=== PATIENT | female | born 1955 | race Caucasian/White ===

== ENCOUNTER 2016-02-22 06:09 | Inpatient (IN) | payer MEDICARE, BC ==
[2016-02-22] MEDS ORDERED: NORMAL SALINE 1000 ML 1,000 ML IV ONE ×2 (06:33→08:32)
[2016-02-22] MEDS ORDERED: ONDANSETRON HCL INJ/PF 4 MG/2 ML SDV IV ONE (06:33)
--- NOTE | 2016-02-22 06:40 | ER Document Report ---
ED General - General Chief Complaint: Nausea/Vomiting/Diarrhea Stated Complaint: NAUSEA/VOMITING Mode of Arrival: Ambulatory Information source: Patient Notes: 60-year-old female who is had a history of nausea vomiting and complaints of difficulty urinating dehydration presents with complaints of nausea and vomiting. Patient states that she's been vomiting for 5 days denies any fevers or chills denies any abdominal pain patient does note she was able to urinate today TRAVEL OUTSIDE OF THE [place] IN LAST 30 DAYS: No - HPI Onset: Last week Onset/Duration: Persistent Quality of pain: No pain Severity: Mild Pain Level: Denies Associated symptoms: Diarrhea - Notes diarrhea has resolved, Nausea, Vomiting Exacerbated by: Denies Relieved by: Denies Similar symptoms previously: Yes Recently seen / treated by doctor: Yes - Related Data Allergies/Adverse Reactions: Sulfa (Sulfonamide Antibiotics) Allergy (Severe, Verified 10/17/15 02:42) rash morphine [Morphine] Allergy (Intermediate, Verified 10/17/15 02:42) Hives Past Medical History - Social History Smoking Status: Never Smoker Cigarette use (# per day): No Chew tobacco use (# tins/day): No Smoking Education Provided: No Family History: CVA, Hyperlipidemia, Hypertension, Malignancy, Thyroid Disfunction - Past Medical History Cardiac Medical History: Reports: Hx Hypercholesterolemia, Hx Hypertension Pulmonary Medical History: Reports: Hx Asthma - Pediatric Neurological Medical History: Reports: Hx Migraine Endocrine Medical History: Reports: Hx Hypothyroidism Renal/ Medical History: Reports: Hx Kidney Stones GI Medical History: Reports: Hx Gastroesophageal Reflux Disease, Hx Irritable Bowel Musculoskeltal Medical History: Reports Hx Arthritis - DJD of back, Reports Hx Fibromyalgia, Reports Hx Musculoskeletal Trauma Traumatic Medical History: Reports: Hx Fractures - left wrist Past Surgical History: Reports: Hx Appendectomy, Hx Cholecystectomy, Hx Genitourinary Surgery - Bladder surgery annually, Hx Tonsillectomy - Immunizations Immunizations up to date: Yes Hx Diphtheria, Pertussis, Tetanus Vaccination: Yes - 2009 Hx Pneumococcal Vaccination: 02/24/00 Review of Systems - Review of Systems Notes: REVIEW OF SYSTEMS: CONSTITUTIONAL : Denies fever, chills, or sweats. Denies recent illness. EENT: Denies eye, ear, throat, or mouth pain or symptoms. Denies nasal or sinus congestion or discharge. Denies throat, tongue, or mouth swelling or difficulty swallowing. CARDIOVASCULAR: Denies chest pain. Denies palpitations or racing or irregular heart beat. Denies ankle edema. RESPIRATORY: Denies cough, cold, or chest congestion. Denies shortness of breath, difficulty breathing, or wheezing. GASTROINTESTINAL: Admits nausea vomiting diarrhea GENITOURINARY: Denies difficulty urinating, painful urination, burning, frequency, blood in urine, or discharge. FEMALE GENITOURINARY: Denies vaginal bleeding, heavy or abnormal periods, irregular periods. Denies vaginal discharge or odor. MUSCULOSKELETAL: Denies back or neck pain or stiffness. Denies joint pain or swelling. SKIN: Denies rash, lesions or sores. HEMATOLOGIC : Denies easy bruising or bleeding. LYMPHATIC: Denies swollen, enlarged glands. NEUROLOGICAL: Denies confusion or altered mental status. Denies passing out or loss of consciousness. Denies dizziness or lightheadedness. Denies headache. Denies weakness or paralysis or loss of use of either side. Denies problems with gait or speech. Denies sensory loss, numbness, or tingling. Denies seizures. PSYCHIATRIC: Denies anxiety or stress. Denies depression, suicidal ideation, or homicidal ideation. ALL OTHER SYSTEMS REVIEWED AND NEGATIVE. Dictation was performed using [employer] voice recognition software PHYSICAL EXAMINATION: GENERAL: Well-appearing, well-nourished and in no acute distress. HEAD: Atraumatic, normocephalic. EYES: Pupils equal round and reactive to light, extraocular movements intact, conjunctiva are normal. ENT: Nares patent, oropharynx clear without exudates. Moist mucous membranes. Lips tongue appear well-hydrated NECK: Normal range of motion, supple without lymphadenopathy LUNGS: Breath sounds clear to auscultation bilaterally and equal. No wheezes rales or rhonchi. HEART: Regular rate and rhythm without murmurs ABDOMEN: Soft, nontender, nondistended abdomen. No guarding, no rebound. No masses appreciated. Female : deferred Musculoskeletal: Normal range of motion, no pitting or edema. No cyanosis. NEUROLOGICAL: Cranial nerves grossly intact. Normal speech, normal gait. Normal sensory, motor exams PSYCH: Normal mood, normal affect. SKIN: Warm, Dry, normal turgor, no rashes or lesions noted. Physical Exam - Vital signs Vitals: Temp Pulse Resp BP Pulse Ox 97.8 F 106 H 16 152/82 H 100 02/22/16 06:22 02/22/16 06:22 02/22/16 06:22 02/22/16 06:22 02/22/16 06:22 Course - Re-evaluation Re-evalutation: 02/22/16 07:30 I very low suspicion for any life-threatening issues however on the previous presentation patient was hyponatremic, at this time she is not confused , labs pending 02/22/16 08:32 Patient's sodium is 116.8 fluids have already been ordered - Vital Signs Vital signs: Temp Pulse Resp BP Pulse Ox 97.8 F 106 H 16 152/82 H 100 02/22/16 06:22 02/22/16 06:22 02/22/16 06:22 02/22/16 06:22 02/22/16 06:22 - Laboratory Result Diagrams: 02/22/16 07:56 02/22/16 07:56 Laboratory results interpreted by me: 02/22/16 07:56 Sodium 116.8 L* Potassium 3.5 L Chloride 76 L Glucose 114 H AST 12 L Alkaline Phosphatase 169 H Critical Care Note - Critical Care Note Total time excluding time spent on procedures (mins): 37 Comments: 37 minutes of critical care time spent in direct contact evaluating and reevaluating the patient, treating symptoms, reviewing labs and studies and speaking with family and consultants excluding any procedures Discharge - Discharge Clinical Impression: Acute gastroenteritis, Hyponatremia, symptomatic hyponatremia Condition: Stable Disposition: ADMITTED OBSERVATION Admitting Provider: Hospitalist Unit Admitted: Medical Floor
[2016-02-22 08:23] LABS: ALANINE AMINOTRANSFERASE 33 U/L (9-52); ALBUMIN 4.2 g/dL (3.5-5.0); ALKALINE PHOSPHATASE 169 U/L (38-126); ASPARTATE AMINO TRANSFERASE 12 U/L (14-36); BLOOD UREA NITROGEN 8 mg/dL (7-20); CALCIUM 9.2 mg/dL (8.4-10.2); CARBON DIOXIDE 25 mmol/L (22-30); CHLORIDE 76 mmol/L (98-107); CREATININE RESULT 0.57 mg/dL (0.52-1.25); GLUCOSE 114 mg/dL (75-110); POTASSIUM 3.5 mmol/L (3.6-5.0); TOTAL PROTEIN 7.5 g/dL (6.3-8.2)
[2016-02-22 08:25] LABS: ANION GAP 16 (5-19)
[2016-02-22 08:30] LABS: SODIUM 116.8 mmol/L (137-145)
[2016-02-22 08:44] LABS: HEMOGLOBIN 12.4 g/dL (12.0-15.5); HGB HCT DIFFERENCE 1.2; MEAN CORPUSCULAR HEMOGLOBIN 28.4 pg (27.0-33.4); MEAN CORPUSCULAR HGB CONC 34.5 g/dL (32.0-36.0); MEAN CORPUSCULAR VOLUME 82 fl (80-97); RED BLOOD COUNT 4.37 10^6/uL (3.72-5.28); RED CELL DISTRIBUTION WIDTH 14.2 % (11.5-14.0); WHITE BLOOD COUNT 18.2 10^3/uL (4.0-10.5)
[2016-02-22] MEDS ORDERED: ONDANSETRON HCL INJ/PF 4 MG/2 ML SDV IV PRN (08:55)
--- NOTE | 2016-02-22 08:57 | Progress Note ---
Provider Note Provider Note: [facility] Search Criteria: Last Name 'Chico' and First Name Shlomo' and = ' and Request Period = 08/26/15' to 02/22/16' - 1 out of 1 Recipients Selected. Fill Date Product, Str, Form Qty Days Pt ID Prescriber Written RX# N/R* Pharm MED+ ------ ---- --------- --- ------- ----- --------- ------ 10/28/2015 ZOLPIDEM TARTRATE 5 MG TABLET 30.00 30 [id number] 09/28/2015 [id number] R [id number] 00.0 09/28/2015 ZOLPIDEM TARTRATE 5 MG TABLET 30.00 30 [id number] 09/28/2015 [id number] N [id number] 00.0 09/08/2015 ALPRAZOLAM 1 MG TABLET 90.00 30 [id number] 06/13/2015 [id number] R [id number] 00.0 08/29/2015 ZOLPIDEM TART ER 12.5 MG TAB 30.00 30 [id number] 06/13/2015 [id number] N [id number] 00.0 *N/R N=New R=Refill +MED Daily Prescribers for prescriptions listed [id number] NINFA GARCIA MD; [facility], [address] [place] [id number] Pharmacies that dispensed prescriptions listed [id number] [facility] [place]ARCIA [place] ; EMISSIONS TESTING TECHNICIAN: [facility] #[id number], [facility] , [address] [facility] [id number], Patients that match search criteria ---------
[2016-02-22 09:09] LABS: ANISOCYTOSIS SLIGHT; BAND NEUTROPHILS % (MANUAL) 2 % (3-5); BASOPHILS % (MANUAL) 0 % (0-2); EOSINOPHILS % (MANUAL) 0 % (0-6); LYMPHOCYTES % (MANUAL) 3 % (13-45); POLYCHROMASIA SLIGHT; TOTAL CELLS COUNTED 100; TOXIC GRANULATION 2+; TOXIC VACUOLATION PRESENT
[2016-02-22 10:09] LABS: APPEARANCE,URINE CLEAR; BILIRUBIN,URINE NEGATIVE (NEGATIVE); GLUCOSE, URINE 50 mg/dL (NEGATIVE); KETONES,URINE 20 mg/dL (NEGATIVE); LEUKOCYTE ESTERASE,URINE TRACE (NEGATIVE); NITRITE,URINE NEGATIVE (NEGATIVE); PROTEIN,URINE NEGATIVE (NEGATIVE); URINE SPECIFIC GRAVITY 1.005; UROBILINOGEN,URINE NEGATIVE mg/dL (<2.0)
[2016-02-22 10:18] LABS: URINE BARBITURATES SCREEN NEGATIVE; URINE METHADONE SCREEN NEGATIVE; URINE PHENCYCLIDINE SCREEN NEGATIVE
[2016-02-22] MEDS: METOPROLOL SUCCINATE 50 MG TAB.SR.24H PO SCH ×2 (10:31→21:24)
[2016-02-22] MEDS: LEVOTHYROXINE SODIUM 0.05 MG TABLET PO SCH (10:32)
[2016-02-22] MEDS ORDERED: ENOXAPARIN SODIUM INJ 40 MG/0.4 ML DISP.SYRIN SUBCUT ONE (11:00)
[2016-02-22] MEDS ORDERED: NORMAL SALINE 1000 ML 1,000 ML IV PRN (11:52)
[2016-02-22 11:57] LABS: ANION GAP 15 (5-19); BLOOD UREA NITROGEN 7 mg/dL (7-20); CARBON DIOXIDE 24 mmol/L (22-30); CHLORIDE 88 mmol/L (98-107); CREATININE RESULT 0.56 mg/dL (0.52-1.25); GLUCOSE 105 mg/dL (75-110); POTASSIUM 3.3 mmol/L (3.6-5.0); SODIUM 126.6 mmol/L (137-145)
--- NOTE | 2016-02-22 14:55 | PDOC H&P ---
History of Present Illness Admission Date/PCP: 02/22/16 08:49 ABRAM SCHREIBER MD Patient complains of: Nausea and vomiting History of Present Illness: WILMAR GOLDEN is a 60 year old female with a past medical history of fibromyalgia is well known to the emergency department and the hospitalist service. The patient denies any confusion or change in mental status. She denies any alcohol or diuretic use. 02/23/15 12/15/15 02/22/16 14:35 06:36 07:56 Sodium 124 L 119.8 L* 116.8 L* Patient presents with a history of nausea vomiting and complaints of difficulty urinating dehydration presents with complaints of nausea and vomiting. Patient states that she's been vomiting for 3 days denies any fevers or chills denies any abdominal pain patient does note she was able to urinate today. The patient has had one day of diarrhea one symptoms started. The patient states that both of her grandchildren have been in healing feels that she has a stomach virus from them. The patient has been admitted in the past with hyponatremia. On presentation to [facility]ailesh the patient was found to have a sodium of 116 and the patient was referred to the hospitalist remission and management. MEDICATIONS: The medications listed in this document may have been auto- populated from previous contact and may not been verified or reconciled. This may not be an accurate reflection of the patient's home medication(s); however, authors are unable to edit or delete the medications listed in this document as "home medications". Past Medical History Cardiac Medical History: Reports: Hyperlipidema, Hypertension Pulmonary Medical History: Reports: Asthma Neurological Medical History: Reports: Migraine Endocrine Medical History: Reports: Hypothyroidism GI Medical History: Reports: Gastroesophageal Reflux Disease Musculoskeltal Medical History: Reports: Arthritis - DJD of back, Fibromyalgia Hematology: Reports: Anemia - on iron Past Surgical History Past Surgical History: Reports: Appendectomy, Cholecystectomy, Tonsillectomy Social History Information Source: Patient Occupation: Retired Lives with: Spouse/Significant other Smoking Status: Never Smoker Frequency of Alcohol Use: None Hx Recreational Drug Use: No Hx Prescription Drug Abuse: No - Advance Directive Resuscitation Status: Full Code Surrogate healthcare decision maker:: : Mukul Family History Family History: CVA, Hyperlipidemia, Hypertension, Malignancy, Thyroid Disfunction Parental Family History Reviewed: Yes Children Family History Reviewed: Yes Sibling(s) Family History Reviewed.: Yes Medication/Allergy Home Medications: Levothyroxine Sodium [Synthroid 0.05 mg Tablet] 50 mcg PO DAILY 07/01/15 Metoprolol Succinate [Toprol Xl] 100 mg PO BID 07/01/15 Trazodone HCl 100 mg PO QHS PRN 07/01/15 Zolpidem Tartrate [Ambien CR 6.25 mg Tablet] 12.5 mg PO QHS PRN 07/01/15 Allergies/Adverse Reactions: Sulfa (Sulfonamide Antibiotics) Allergy (Severe, Verified 02/22/16 08:40) rash morphine [Morphine] Allergy (Intermediate, Verified 02/22/16 08:40) Hives Review of Systems Constitutional: PRESENT: fatigue, weakness. ABSENT: chills, fever(s), headache( s), weight gain, weight loss Eyes: ABSENT: visual disturbances Ears: ABSENT: hearing changes Cardiovascular: ABSENT: chest pain, dyspnea on exertion, edema, orthropnea, palpitations Respiratory: ABSENT: cough, hemoptysis Gastrointestinal: PRESENT: diarrhea, nausea, vomiting. ABSENT: abdominal pain, constipation, hematemesis, hematochezia Genitourinary: ABSENT: dysuria, hematuria Musculoskeletal: ABSENT: joint swelling Integumentary: ABSENT: rash, wounds Neurological: ABSENT: abnormal gait, abnormal speech, confusion, dizziness, focal weakness, syncope Psychiatric: ABSENT: anxiety, depression, homidical ideation, suicidal ideation Endocrine: ABSENT: cold intolerance, heat intolerance, polydipsia, polyuria Hematologic/Lymphatic: ABSENT: easy bleeding, easy bruising Physical Exam Vital Signs: Temp Pulse Resp BP Pulse Ox 97.8 F 106 H 10 L 130/63 H 100 02/22/16 06:22 02/22/16 06:22 02/22/16 12:01 02/22/16 12:01 02/22/16 12:01 General appearance: PRESENT: no acute distress, cooperative, well-developed, well-nourished Head exam: PRESENT: atraumatic, normocephalic Eye exam: PRESENT: conjunctiva pink, EOMI, PERRLA. ABSENT: scleral icterus Ear exam: PRESENT: normal external ear exam Mouth exam: PRESENT: moist, tongue midline Neck exam: ABSENT: carotid bruit, JVD, lymphadenopathy, thyromegaly Respiratory exam: PRESENT: clear to auscultation moses, symmetrical, unlabored. ABSENT: rales, rhonchi, tachypnea, wheezes Cardiovascular exam: PRESENT: RRR. ABSENT: diastolic murmur, rubs, systolic murmur Pulses: PRESENT: normal dorsalis pedis pul Vascular exam: PRESENT: normal capillary refill GI/Abdominal exam: PRESENT: normal bowel sounds, soft. ABSENT: distended, guarding, mass, organolmegaly, rebound, tenderness Rectal exam: PRESENT: deferred Extremities exam: PRESENT: full ROM. ABSENT: calf tenderness, clubbing, pedal edema Neurological exam: PRESENT: alert, awake, oriented to person, oriented to place , oriented to time, oriented to situation, CN II-XII grossly intact. ABSENT: motor sensory deficit Psychiatric exam: PRESENT: appropriate affect, normal mood. ABSENT: homicidal ideation, suicidal ideation Skin exam: PRESENT: dry, intact, warm. ABSENT: cyanosis, rash Results Laboratory Results: 02/22/16 11:31 02/22/16 02/22/16 02/22/16 09:20 09:20 09:20 Sodium Cancelled Potassium Cancelled Chloride Cancelled Carbon Dioxide Cancelled Anion Gap Cancelled BUN Cancelled Creatinine Cancelled Est GFR ( Amer) Cancelled Est GFR (Non-Af Amer) Cancelled Glucose Cancelled Serum Osmolality Cancelled Calcium Cancelled Urine Color Urine Appearance Urine pH Ur Specific [place] Urine Protein Urine Glucose (UA) Urine Ketones Urine Blood Urine Nitrite Ur Leukocyte Esterase Urine WBC (Auto) Urine RBC (Auto) Urine Osmolality 202 L 02/22/16 02/22/16 02/22/16 09:20 11:31 11:31 Sodium 126.6 L Potassium 3.3 L Chloride 88 L Carbon Dioxide 24 Anion Gap 15 BUN 7 Creatinine 0.56 Est GFR ( Amer) > 60 Est GFR (Non-Af Amer) > 60 Glucose 105 Serum Osmolality 260 L Calcium 9.0 Urine Color STRAW Urine Appearance CLEAR Urine pH 8.0 Ur Specific [place] 1.005 Urine Protein NEGATIVE Urine Glucose (UA) 50 H Urine Ketones 20 H Urine Blood MODERATE H Urine Nitrite NEGATIVE Ur Leukocyte Esterase TRACE H Urine WBC (Auto) 2 Urine RBC (Auto) 10 Urine Osmolality Assessment & Plan - Diagnosis (1) Acute gastroenteritis Is this a current diagnosis for this admission?: YesPlan: Continue anti-medics. The patient has had no nausea vomiting since presentation. The patient actually ate a lunch tray. (2) Hyponatremia Is this a current diagnosis for this admission?: YesPlan: The patient has had other occurrences of this. Will attain serum and urine osmolalities and sodiums for comparison. In the meantime will gently hydrate. (3) Hypertension Is this a current diagnosis for this admission?: YesPlan: Will continue home medications. (4) Hypothyroid Qualifiers: Hypothyroidism type: unspecified Qualified Code(s): E03.9 - Hypothyroidism, unspecified Is this a current diagnosis for this admission?: YesPlan: Will continue home medications. (5) Interstitial cystitis Is this a current diagnosis for this admission?: No (6) DVT prophylaxis Is this a current diagnosis for this admission?: YesPlan: Will add Lovenox - Time Time Spent with patient: on this admission including assessment, plan, physical examination, review of records and patient education is 50 minutes. Time Spent: 50 to 70 Minutes Medications reviewed and adjusted accordingly: Yes Anticipated discharge: Home Within: within 24 hours Disposition: The patient is a full code. Pending patient's symptomatology and diagnostic findings will reevaluate in the a.m. - Inpatient Certification Based on my medical assessment, after consideration of the patient's comorbidities, presenting symptoms, or acuity I expect that the services needed warrant INPATIENT care.: Yes Medical Necessity: Need Close Monitoring Due to Risk of Patient Decompensation, Need For IV Fluids, Need For Continuous Telemetry Monitoring Post Hospital Care: D/C or Transfer Summary
[2016-02-22 20:54] LABS: ANION GAP 11 (5-19); BLOOD UREA NITROGEN 12 mg/dL (7-20); CALCIUM 8.9 mg/dL (8.4-10.2); CARBON DIOXIDE 21 mmol/L (22-30); CHLORIDE 100 mmol/L (98-107); CREATININE RESULT 0.72 mg/dL (0.52-1.25); GLUCOSE 95 mg/dL (75-110); POTASSIUM 3.6 mmol/L (3.6-5.0); SODIUM 132.4 mmol/L (137-145)
[2016-02-22] MEDS ORDERED: DEXTROSE 5%-WATER 1000 ML 1,000 ML IV PRN ×3 (21:12→21:34)
[2016-02-22] MEDS ORDERED: DESMOPRESSIN ACETATE INJ 4 MCG/1 ML AMPULE SUBCUT ONE (22:00)
[2016-02-22] MEDS: TRAZODONE HCL 50 MG TABLET PO PRN (23:29)
[2016-02-23 00:57] LABS: ANION GAP 10 (5-19); BLOOD UREA NITROGEN 10 mg/dL (7-20); CALCIUM 8.6 mg/dL (8.4-10.2); CARBON DIOXIDE 24 mmol/L (22-30); CHLORIDE 98 mmol/L (98-107); CREATININE RESULT 0.69 mg/dL (0.52-1.25); GLUCOSE 100 mg/dL (75-110)
[2016-02-23] MEDS ORDERED: DEXTROSE 5%-WATER 1000 ML 1,000 ML IV PRN (01:12)
[2016-02-23] MEDS ORDERED: DESMOPRESSIN ACETATE INJ 4 MCG/1 ML AMPULE SUBCUT ONE (01:45)
[2016-02-23] MEDS ORDERED: DESMOPRESSIN ACETATE INJ 4 MCG/1 ML AMPULE ONE (02:10)
[2016-02-23 04:03] LABS: HEMATOCRIT 30.2 % (36.0-47.0); HEMOGLOBIN 10.6 g/dL (12.0-15.5); HGB HCT DIFFERENCE 1.6; MEAN CORPUSCULAR HGB CONC 34.9 g/dL (32.0-36.0); MEAN CORPUSCULAR VOLUME 83 fl (80-97); RED BLOOD COUNT 3.64 10^6/uL (3.72-5.28); RED CELL DISTRIBUTION WIDTH 14.6 % (11.5-14.0); WHITE BLOOD COUNT 8.4 10^3/uL (4.0-10.5)
[2016-02-23 04:18] LABS: ANION GAP 9 (5-19); BLOOD UREA NITROGEN 9 mg/dL (7-20); CALCIUM 8.4 mg/dL (8.4-10.2); CARBON DIOXIDE 22 mmol/L (22-30); CHLORIDE 97 mmol/L (98-107); CREATININE RESULT 0.67 mg/dL (0.52-1.25); GLUCOSE 115 mg/dL (75-110); MAGNESIUM 1.7 mg/dL (1.6-2.3); SODIUM 128.1 mmol/L (137-145)
[2016-02-23 04:23] LABS: POTASSIUM 2.9 mmol/L (3.6-5.0)
[2016-02-23] MEDS ORDERED: POTASSIUM CHLORIDE 20 MEQ/15 ML UDCUP PO ONE ×3 (04:38→09:00)
[2016-02-23] MEDS ORDERED: POTASSIUM CHLORIDE 20 MEQ/15 ML UDCUP ONE (05:18)
[2016-02-23] MEDS ORDERED: DESMOPRESSIN ACETATE INJ 4 MCG/1 ML AMPULE SUBCUT SCH (06:00)
[2016-02-23] MEDS: ACETAMINOPHEN 325 MG TABLET PO PRN (06:38)
[2016-02-23 09:04] LABS: ANION GAP 9 (5-19); BLOOD UREA NITROGEN 8 mg/dL (7-20); CALCIUM 8.4 mg/dL (8.4-10.2); CARBON DIOXIDE 21 mmol/L (22-30); CHLORIDE 96 mmol/L (98-107); CREATININE RESULT 0.66 mg/dL (0.52-1.25); GLUCOSE 127 mg/dL (75-110); POTASSIUM 3.4 mmol/L (3.6-5.0); SODIUM 126.2 mmol/L (137-145)
[2016-02-23] MEDS: METOPROLOL SUCCINATE 50 MG TAB.SR.24H PO SCH ×2 (09:34→21:16)
[2016-02-23] MEDS: ENOXAPARIN SODIUM INJ 40 MG/0.4 ML DISP.SYRIN SUBCUT SCH (09:38)
[2016-02-23] MEDS: LEVOTHYROXINE SODIUM 0.05 MG TABLET PO SCH (09:39)
[2016-02-23] MEDS ORDERED: POTASSI CL 20 MEQ/NS 1L 1,000 ML IV ONE (10:00)
[2016-02-23] MEDS ORDERED: LANSOPRAZOLE 30 MG TAB.RAP.DR PO ONE (14:06)
--- NOTE | 2016-02-23 14:31 | PDOC PROGRESS REPORT ---
Subjective Progress Note for:: 02/23/16 Subjective:: The patient was seen earlier today on rounds. Patient has no evidence of neurological deficit. The patient states that her symptoms are much improved in comparison to yesterday. The patient states that she was able to tolerate her dinner and is ready for breakfast this morning. The patient denies any vomiting, diarrhea, shortness of breath, dizziness, chest pain, heart palpitations, fevers, or chills overnight. The patient has remained afebrile. Blood pressures have been in a good range. When prompted the patient voices no other concerns at this time. Review of systems: The rest of the review of systems is negative. Physical Exam Vital Signs: Temp Pulse Resp BP Pulse Ox 98.3 F 87 20 115/53 L 98 02/23/16 13:26 02/23/16 14:00 02/23/16 13:26 02/23/16 13:26 02/23/16 13:26 Intake & Output 02/21/16 02/22/16 02/23/16 23:59 23:59 23:59 Intake Total 822 Balance 822 Weight 51.7 kg General appearance: PRESENT: no acute distress, cooperative, well-developed, well-nourished Head exam: PRESENT: atraumatic, normocephalic Eye exam: PRESENT: conjunctiva pink, EOMI, PERRLA. ABSENT: scleral icterus Ear exam: PRESENT: normal external ear exam Mouth exam: PRESENT: moist, tongue midline Neck exam: ABSENT: carotid bruit, JVD, lymphadenopathy, thyromegaly Respiratory exam: PRESENT: clear to auscultation moses, symmetrical, unlabored. ABSENT: rales, rhonchi, tachypnea, wheezes Cardiovascular exam: PRESENT: RRR. ABSENT: diastolic murmur, rubs, systolic murmur Pulses: PRESENT: normal dorsalis pedis pul Vascular exam: PRESENT: normal capillary refill GI/Abdominal exam: PRESENT: normal bowel sounds, soft. ABSENT: distended, guarding, mass, organolmegaly, rebound, tenderness Rectal exam: PRESENT: deferred Extremities exam: PRESENT: full ROM. ABSENT: calf tenderness, clubbing, pedal edema Neurological exam: PRESENT: alert, awake, oriented to person, oriented to place , oriented to time, oriented to situation, CN II-XII grossly intact. ABSENT: motor sensory deficit Psychiatric exam: PRESENT: appropriate affect, normal mood. ABSENT: homicidal ideation, suicidal ideation Skin exam: PRESENT: dry, intact, warm. ABSENT: cyanosis, rash Results Laboratory Results: Labs- All tests 24 hr 02/22/16 02/22/16 02/22/16 20:12 20:12 20:12 WBC RBC Hgb Hct MCV MCH MCHC RDW Plt Count Sodium 132.4 L Potassium 3.6 Chloride 100 Carbon Dioxide 21 L Anion Gap 11 BUN 12 Creatinine 0.72 Est GFR ( Amer) > 60 Est GFR (Non-Af Amer) > 60 Glucose 95 Calcium 8.9 Magnesium 2.1 Lipase TSH 4.71 H Free T4 02/23/16 02/23/16 02/23/16 00:30 03:52 03:52 WBC 8.4 RBC 3.64 L Hgb 10.6 L Hct 30.2 L MCV 83 MCH 29.0 MCHC 34.9 RDW 14.6 H Plt Count 297 Sodium 132.0 L 128.1 L Potassium 4.0 2.9 L* D Chloride 98 97 L Carbon Dioxide 24 22 Anion Gap 10 9 BUN 10 9 Creatinine 0.69 0.67 Est GFR ( Amer) > 60 > 60 Est GFR (Non-Af Amer) > 60 > 60 Glucose 100 115 H Calcium 8.6 8.4 Magnesium 1.7 Lipase TSH Free T4 02/23/16 02/23/16 02/23/16 07:58 07:58 07:58 WBC RBC Hgb Hct MCV MCH MCHC RDW Plt Count Sodium 126.2 L Potassium 3.4 L Chloride 96 L Carbon Dioxide 21 L Anion Gap 9 BUN 8 Creatinine 0.66 Est GFR ( Amer) > 60 Est GFR (Non-Af Amer) > 60 Glucose 127 H Calcium 8.4 Magnesium Lipase 68.0 TSH Free T4 1.46 Assessment & Plan - Diagnosis (1) Acute gastroenteritis Is this a current diagnosis for this admission?: YesPlan: Continue anti-medics. The patient has had no nausea vomiting since presentation. The patient has been advanced to a regular diet. Appears to been resolving. (2) Hyponatremia Is this a current diagnosis for this admission?: YesPlan: The patient has had other occurrences of this. The patient denies any alcohol use. It appears to be a hypovolemic hyponatremia. Will continue to replace fluids. Now that the patient is taking by mouth will drastically decreased fluids and repeat labs this afternoon. (3) Hypertension Is this a current diagnosis for this admission?: YesPlan: Will continue home medications. (4) Hypothyroid Qualifiers: Hypothyroidism type: unspecified Qualified Code(s): E03.9 - Hypothyroidism, unspecified Is this a current diagnosis for this admission?: YesPlan: Will continue home medications. Teeth 4 is unremarkable (5) Interstitial cystitis Is this a current diagnosis for this admission?: No (6) Hypokalemia Is this a current diagnosis for this admission?: YesPlan: Will replete this (7) DVT prophylaxis Is this a current diagnosis for this admission?: YesPlan: Continue Lovenox - Time Time Spent with patient: on this followup including assessment, plan, physical examination, and patient education is 25 minutes. Time Spent with patient: 25-34 minutes Anticipated discharge: Home Within: within 24 hours Disposition: The patient is a full code. Pending patient's symptomatology and diagnostic findings will reevaluate in the a.m.
[2016-02-23 15:42] LABS: ANION GAP 6 (5-19); BLOOD UREA NITROGEN 7 mg/dL (7-20); CALCIUM 8.4 mg/dL (8.4-10.2); CARBON DIOXIDE 24 mmol/L (22-30); CHLORIDE 98 mmol/L (98-107); CREATININE RESULT 0.63 mg/dL (0.52-1.25); GLUCOSE 102 mg/dL (75-110); SODIUM 128.1 mmol/L (137-145)
[2016-02-23 15:50] LABS: POTASSIUM 4.5 mmol/L (3.6-5.0)
[2016-02-23] MEDS: LANSOPRAZOLE 30 MG TAB.RAP.DR PO SCH (16:52)
[2016-02-23] MEDS: TRAZODONE HCL 50 MG TABLET PO PRN (21:16)
[2016-02-23] MEDS: ZOLPIDEM TARTRATE 5 MG TABLET PO PRN (21:16)
[2016-02-24] MEDS: LANSOPRAZOLE 30 MG TAB.RAP.DR PO SCH ×2 (05:46→16:36)
[2016-02-24 07:53] LABS: ANION GAP 9 (5-19); BLOOD UREA NITROGEN 5 mg/dL (7-20); CALCIUM 8.5 mg/dL (8.4-10.2); CARBON DIOXIDE 22 mmol/L (22-30); CHLORIDE 94 mmol/L (98-107); CREATININE RESULT 0.54 mg/dL (0.52-1.25); GLUCOSE 94 mg/dL (75-110); MAGNESIUM 1.8 mg/dL (1.6-2.3); SODIUM 124.9 mmol/L (137-145)
[2016-02-24] MEDS: ENOXAPARIN SODIUM INJ 40 MG/0.4 ML DISP.SYRIN SUBCUT SCH (08:14)
[2016-02-24] MEDS ORDERED: NORMAL SALINE 1000 ML 1,000 ML IV PRN (08:22)
[2016-02-24] MEDS ORDERED: BENZOCAINE/MENTHOL SORE THROAT LOZENGE BUCCAL PRN (08:23)
[2016-02-24] MEDS ORDERED: MAG HYDROX/AL HYDROX/SIMETH SUSP 30 ML UDCUP PO PRN (08:24)
[2016-02-24] MEDS ORDERED: ONDANSETRON 4 MG TAB.RAPDIS PO PRN (08:25)
[2016-02-24] MEDS: METOPROLOL SUCCINATE 50 MG TAB.SR.24H PO SCH ×2 (10:15→21:19)
[2016-02-24] MEDS: LEVOTHYROXINE SODIUM 0.05 MG TABLET PO SCH (10:15)
[2016-02-24] MEDS: ACETAMINOPHEN 325 MG TABLET PO PRN ×2 (11:42→21:18)
--- NOTE | 2016-02-24 15:09 | PDOC PROGRESS REPORT ---
Subjective Progress Note for:: 02/24/16 Subjective:: The patient was seen earlier today on rounds. Patient has no evidence of neurological deficit. The patient states that her symptoms are much improved in comparison to yesterday. Patient's been able to tolerate all of her meals. Patient does complain of indigestion stating that she ate "spicy pasta yesterday " The patient denies any vomiting, diarrhea, shortness of breath, dizziness, chest pain, heart palpitations, fevers, or chills overnight. The patient has remained afebrile. Blood pressures have been in a good range. When prompted the patient voices no other concerns at this time. Review of systems: The rest of the review of systems is negative. Physical Exam Vital Signs: Temp Pulse Resp BP Pulse Ox 98.1 F 85 16 143/73 H 100 02/24/16 08:42 02/24/16 14:00 02/24/16 08:42 02/24/16 08:42 02/24/16 08:42 Intake & Output 02/22/16 02/23/16 02/24/16 23:59 23:59 23:59 Intake Total 2249 700 Balance 2249 700 Weight 51.7 kg General appearance: PRESENT: no acute distress, cooperative, well-developed, well-nourished Head exam: PRESENT: atraumatic, normocephalic Eye exam: PRESENT: conjunctiva pink, EOMI, PERRLA. ABSENT: scleral icterus Ear exam: PRESENT: normal external ear exam Mouth exam: PRESENT: moist, tongue midline Neck exam: ABSENT: carotid bruit, JVD, lymphadenopathy, thyromegaly Respiratory exam: PRESENT: clear to auscultation moses, symmetrical, unlabored. ABSENT: rales, rhonchi, tachypnea, wheezes Cardiovascular exam: PRESENT: RRR. ABSENT: diastolic murmur, rubs, systolic murmur Pulses: PRESENT: normal dorsalis pedis pul Vascular exam: PRESENT: normal capillary refill GI/Abdominal exam: PRESENT: normal bowel sounds, soft. ABSENT: distended, guarding, mass, organolmegaly, rebound, tenderness Rectal exam: PRESENT: deferred Extremities exam: PRESENT: full ROM. ABSENT: calf tenderness, clubbing, pedal edema Neurological exam: PRESENT: alert, awake, oriented to person, oriented to place , oriented to time, oriented to situation, CN II-XII grossly intact. ABSENT: motor sensory deficit Psychiatric exam: PRESENT: appropriate affect, normal mood. ABSENT: homicidal ideation, suicidal ideation Skin exam: PRESENT: dry, intact, warm. ABSENT: cyanosis, rash Results Laboratory Results: 02/23/16 03:52 02/24/16 06:12 02/23/16 02/24/16 14:40 06:12 Sodium 128.1 L 124.9 L Potassium 4.5 D 4.0 Chloride 98 94 L Carbon Dioxide 24 22 Anion Gap 6 9 BUN 7 5 L Creatinine 0.63 0.54 Est GFR ( Amer) > 60 > 60 Est GFR (Non-Af Amer) > 60 > 60 Glucose 102 94 Calcium 8.4 8.5 Magnesium 1.8 Assessment & Plan - Diagnosis (1) Acute gastroenteritis Is this a current diagnosis for this admission?: YesPlan: Continue anti-medics. The patient has had no nausea vomiting since presentation. The patient has been advanced to a regular diet. Appears to been resolving. (2) Hyponatremia Is this a current diagnosis for this admission?: YesPlan: The patient has had other occurrences of this. The patient denies any alcohol use. It appears to be a hypovolemic hyponatremia. Will continue to replace fluids. (3) Hypertension Is this a current diagnosis for this admission?: YesPlan: Will continue home medications. (4) Hypothyroid Qualifiers: Hypothyroidism type: unspecified Qualified Code(s): E03.9 - Hypothyroidism, unspecified Is this a current diagnosis for this admission?: YesPlan: Will continue home medications. T4 is unremarkable (5) Interstitial cystitis Is this a current diagnosis for this admission?: No (6) Hypokalemia Is this a current diagnosis for this admission?: YesPlan: Will replete this (7) DVT prophylaxis Is this a current diagnosis for this admission?: YesPlan: Continue Lovenox - Time Time Spent with patient: on this followup including assessment, plan, physical examination, and patient education is 25 minutes. Time Spent with patient: 25-34 minutes Medications reviewed and adjusted accordingly: Yes Anticipated discharge: Home Within: within 24 hours Disposition: The patient is a full code. Pending patient's symptomatology and diagnostic findings will reevaluate in the a.m.
[2016-02-24] MEDS: TRAZODONE HCL 50 MG TABLET PO PRN (21:19)
[2016-02-24] MEDS: ZOLPIDEM TARTRATE 5 MG TABLET PO PRN (21:19)
[2016-02-25] MEDS: LANSOPRAZOLE 30 MG TAB.RAP.DR PO SCH (05:37)
[2016-02-25 07:16] LABS: ANION GAP 11 (5-19); BLOOD UREA NITROGEN 7 mg/dL (7-20); CALCIUM 8.8 mg/dL (8.4-10.2); CARBON DIOXIDE 23 mmol/L (22-30); CHLORIDE 103 mmol/L (98-107); CREATININE RESULT 0.59 mg/dL (0.52-1.25); GLUCOSE 89 mg/dL (75-110); POTASSIUM 4.1 mmol/L (3.6-5.0); SODIUM 137.3 mmol/L (137-145)
[2016-02-25] MEDS ORDERED: BISACODYL 10 MG SUPP.RECT PR ONE (08:11)
--- NOTE | 2016-02-25 08:16 | PDOC DISCHARGE SUMMARY ---
General - Admit/Disc Date/PCP Admission Date/Primary Care Provider: 02/22/16 08:49 ABRAM SCHREIBER MD Discharge Date: 02/25/16 - Discharge Diagnosis (1) Acute gastroenteritis Is this a current diagnosis for this admission?: Yes (2) Hyponatremia Is this a current diagnosis for this admission?: Yes (3) Hypertension Is this a current diagnosis for this admission?: Yes (4) Hypothyroid Is this a current diagnosis for this admission?: Yes (5) Interstitial cystitis Is this a current diagnosis for this admission?: No (6) Hypokalemia Is this a current diagnosis for this admission?: Yes (7) DVT prophylaxis Is this a current diagnosis for this admission?: Yes - Additional Information Resuscitation Status: Full Code Discharge Diet: As Tolerated, Regular Discharge Activity: Activity As Tolerated Home Medications: Levothyroxine Sodium [Synthroid 0.05 mg Tablet] 50 mcg PO DAILY 07/01/15 Metoprolol Succinate [Toprol Xl] 100 mg PO BID 07/01/15 Trazodone HCl 100 mg PO QHS PRN 07/01/15 Zolpidem Tartrate [Ambien CR 6.25 mg Tablet] 12.5 mg PO QHS PRN 07/01/15 History of Present Illness Patient complains of: Vomiting History of Present Illness: WILMAR GOLDEN is a 60 year old female with a past medical history of fibromyalgia is well known to the emergency department and the hospitalist service. The patient denies any confusion or change in mental status. She denies any alcohol or diuretic use. 02/23/15 12/15/15 02/22/16 14:35 06:36 07:56 Sodium 124 L 119.8 L* 116.8 L* Patient presented with a history of nausea vomiting and complaints of difficulty urinating dehydration presents with complaints of nausea and vomiting. Patient states that she's been vomiting for 3 days denies any fevers or chills denies any abdominal pain patient does note she was able to urinate today. The patient has had one day of diarrhea one symptoms started. The patient states that both of her grandchildren have been in healing feels that she has a stomach virus from them. The patient has been admitted in the past with hyponatremia. On presentation to the ED the patient was found to have a sodium of 116 and the patient was referred to the hospitalist remission and management. Hospital Course Hospital Course: The patient was admitted to continuous telemetry unit. The patient was treated for hyponatremia by having cerium and urine osmolalities. The patient's findings were consistent with hypovolemic hyponatremia. The patient had no further replication of symptoms after admission and the patient's diet was slowly advanced. The patient had no further episodes of vomiting nor diarrhea while in the hospital. The patient's sodium did improve and has returned to normal. She has been able to tolerate her diet. The patient had no neurological deficit. Patient did complain of a sore throat which was felt to be due to her vomiting is the patient's throat swabs were found to be unremarkable. The patient also was noted to have heartburn symptoms which are felt to be due to esophageal irritation from vomiting. These were well controlled with Mylanta. At this time the patient voices no concerns other than needing to have a bowel movement. The patient has agreed to suppository and is ready for discharge. It is completely asymptomatic at the time of discharge. Physical Exam Vital Signs: Temp Pulse Resp BP Pulse Ox 97.5 F 81 16 131/63 H 98 02/25/16 03:49 02/25/16 03:49 02/24/16 23:09 02/25/16 03:49 02/25/16 03:49 Intake & Output 02/23/16 02/24/16 02/25/16 23:59 23:59 23:59 Intake Total 2249 2350 0 Balance 2249 2350 0 Weight 56.3 kg General appearance: PRESENT: no acute distress, cooperative, well-developed, well-nourished Head exam: PRESENT: atraumatic, normocephalic Eye exam: PRESENT: conjunctiva pink, EOMI, PERRLA. ABSENT: scleral icterus Ear exam: PRESENT: normal external ear exam Mouth exam: PRESENT: moist, tongue midline Neck exam: ABSENT: carotid bruit, JVD, lymphadenopathy, thyromegaly Respiratory exam: PRESENT: clear to auscultation moses, symmetrical, unlabored. ABSENT: rales, rhonchi, tachypnea, wheezes Cardiovascular exam: PRESENT: RRR. ABSENT: diastolic murmur, rubs, systolic murmur Pulses: PRESENT: normal dorsalis pedis pul Vascular exam: PRESENT: normal capillary refill GI/Abdominal exam: PRESENT: normal bowel sounds, soft. ABSENT: distended, guarding, mass, organolmegaly, rebound, tenderness Rectal exam: PRESENT: deferred Extremities exam: PRESENT: full ROM. ABSENT: calf tenderness, clubbing, pedal edema Neurological exam: PRESENT: alert, awake, oriented to person, oriented to place , oriented to time, oriented to situation, CN II-XII grossly intact. ABSENT: motor sensory deficit Psychiatric exam: PRESENT: appropriate affect, normal mood. ABSENT: homicidal ideation, suicidal ideation Skin exam: PRESENT: dry, intact, warm. ABSENT: cyanosis, rash Results Laboratory Results: 02/23/16 03:52 02/25/16 05:50 02/25/16 05:50 Sodium 137.3 Potassium 4.1 Chloride 103 Carbon Dioxide 23 Anion Gap 11 BUN 7 Creatinine 0.59 Est GFR ( Amer) > 60 Est GFR (Non-Af Amer) > 60 Glucose 89 Calcium 8.8 Magnesium 2.0 Qualifiers [place] BEING DISCHARGED WITH ANY OF THE FOLLOWING DIAGNOSIS?: No Plan Discharge Plan: The patient is to followup with their primary care provider, Dr. Schreiber, within one week for hospital followup regarding acute gastroenteritis. Time Spent: Less than 30 Minutes
[2016-02-25] MEDS: ENOXAPARIN SODIUM INJ 40 MG/0.4 ML DISP.SYRIN SUBCUT SCH (08:22)
[2016-02-25 09:17] VITALS: BP 115/79
[2016-02-25] MEDS: METOPROLOL SUCCINATE 50 MG TAB.SR.24H PO SCH (09:21)
[2016-02-25] MEDS: LEVOTHYROXINE SODIUM 0.05 MG TABLET PO SCH (09:21)
== END 2016-02-25 10:14 | disposition home or self-care (01) | DRG 392 ==
LOC: ER 06:09 → EH 08:43 → OBSVTOIN 08:49 → 5 20:31
PROVIDERS: ADMIT Family Medicine; ATTEND Family Medicine
DX: K52.9 Noninfective gastroenteritis and colitis, unspecified (principal); E87.1 Hypo-osmolality and hyponatremia; K21.9 Gastro-esophageal reflux disease without esophagitis; N30.10 Interstitial cystitis (chronic) without hematuria; I10 Essential (primary) hypertension; E78.5 Hyperlipidemia, unspecified; E78.00 Pure hypercholesterolemia, unspecified; E03.9 Hypothyroidism, unspecified; M79.7 Fibromyalgia; Z88.2 Allergy status to sulfonamides; Z88.5 Allergy status to narcotic agent
CPT/HCPCS: 36415; 80048; 80053; 80301; 81001; 83690; 83735; 83930; 83935; 84300; 84439; 84443; 85025; 85027; 87070; 87880; 96361; 96372; 96374; 99291; G0479; J1650; J2405; J2597; J3480; J3490; J7030; J7060; S0119

== ENCOUNTER 2016-11-04 18:31 | Emergency (ER) | payer MEDICARE, BC ==
--- NOTE | 2016-11-04 19:17 | ER Document Report ---
ED Medical Screen (RME) - General Chief Complaint: Rash Stated Complaint: RASH, UNABLE TO URINATE Time Seen by Provider: 11/04/16 19:15 Notes: Patient presents with the sudden onset of a rash to the lower extremities. It started today. She denies any trauma. She denies any previous history of similar symptoms. No new medications. She states the rash is not painful but it does feel very hot. Patient denies any chest pain or shortness of breath. She has not had any weakness. Exam shows a nonblanching purpuric/vasculitic rash on the lower extremities. TRAVEL OUTSIDE OF THE [place] IN LAST 30 DAYS: No - Related Data Allergies/Adverse Reactions: Sulfa (Sulfonamide Antibiotics) Allergy (Severe, Verified 11/04/16 18:42) rash morphine [Morphine] Allergy (Intermediate, Verified 11/04/16 18:42) Hives Past Medical History - Past Medical History Cardiac Medical History: Reports: Hx Hypercholesterolemia, Hx Hypertension Pulmonary Medical History: Reports: Hx Asthma Neurological Medical History: Reports: Hx Migraine Endocrine Medical History: Reports: Hx Hypothyroidism Renal/ Medical History: Reports: Hx Kidney Stones. 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, Reports Hx Fibromyalgia, Reports Hx Musculoskeletal Trauma Traumatic Medical History: Reports: Hx Fractures - left wrist Past Surgical History: Reports: Hx Appendectomy, Hx Cholecystectomy, Hx Genitourinary Surgery - Bladder surgery annually, Hx Tonsillectomy - Immunizations Immunizations up to date: Yes Hx Diphtheria, Pertussis, Tetanus Vaccination: Yes - 2009 Physical Exam - Vital signs Vitals: Temp Pulse Resp BP Pulse Ox 98.5 F 111 H 18 174/85 H 100 11/04/16 18:39 11/04/16 18:39 11/04/16 18:39 11/04/16 18:39 11/04/16 18:39 Course - Vital Signs Vital signs: Temp Pulse Resp BP Pulse Ox 98.5 F 111 H 18 174/85 H 100 11/04/16 18:39 11/04/16 18:39 11/04/16 18:39 11/04/16 18:39 11/04/16 18:39
--- NOTE | 2016-11-04 20:17 | ER Document Report ---
ED General - General Chief Complaint: Rash Stated Complaint: RASH, UNABLE TO URINATE Time Seen by Provider: 11/04/16 19:15 Mode of Arrival: Ambulatory Information source: Patient Notes: Patient presents complaining of rash to the anterior aspect of bilateral lower extremities that started today. Patient denies any new foods, medications or detergents. Patient states that she took a Benadryl to treat her symptoms but is concerned that she might be dehydrated and that the Benadryl just aggravated her sense of dehydration. Patient reports some decreased urine output. Patient does report she has a previous history of interstitial cystitis. Patient denies any dysuria. Patient states she has some nausea and vomiting 1 episode yesterday but none today. Patient denies any diarrhea. Patient denies any fever. Patient states that she has had chest pain off and on for the past year that she attributes to anxiety. Patient reports she has had chest pain symptoms for the past 4 days. Patient denies any dyspnea recent travel, bedrest or immobilization. Patient states that she suspects that her chest pain symptoms tonight are due to anxiety. TRAVEL OUTSIDE OF THE [place] IN LAST 30 DAYS: No - HPI Onset: This morning - skin rash Onset/Duration: Gradual Pain Level: 3 Associated symptoms: Chest pain, Nausea, Other - skin rash. denies: Body/ muscle aches, Nonproductive cough, Productive cough, Diarrhea, Fever, Vomiting, Shortness of breath Exacerbated by: Denies Relieved by: Denies Similar symptoms previously: Yes - anxiety/cp Recently seen / treated by doctor: No - Related Data Allergies/Adverse Reactions: Sulfa (Sulfonamide Antibiotics) Allergy (Severe, Verified 11/04/16 18:42) rash morphine [Morphine] Allergy (Intermediate, Verified 11/04/16 18:42) Hives Past Medical History - General Information source: Patient - Social History Smoking Status: Never Smoker Frequency of alcohol use: None Drug Abuse: None Occupation: none Lives with: Spouse/Significant other Family History: CVA, Hyperlipidemia, Hypertension, Malignancy, Thyroid Disfunction - Past Medical History Cardiac Medical History: Reports: Hx Hypercholesterolemia, Hx Hypertension Pulmonary Medical History: Reports: Hx Asthma Neurological Medical History: Reports: Hx Migraine Endocrine Medical History: Reports: Hx Hypothyroidism Renal/ Medical History: Reports: Hx Kidney Stones. 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 denies: Fever, Recent illness EENT: No symptoms reported Cardiovascular: Chest pain. denies: Palpitations, Heart racing, Syncope Respiratory: No symptoms reported. denies: Cough, Short of breath Gastrointestinal: No symptoms reported. denies: Abdominal pain, Vomiting Genitourinary: Other - decreased urine output (pt suspects dehydration). denies : Dysuria Female Genitourinary: No symptoms reported Musculoskeletal: No symptoms reported. denies: Back pain Skin: Change in color Hematologic/Lymphatic: No symptoms reported Neurological/Psychological: Anxiety. denies: Headaches Physical Exam - Vital signs Vitals: Temp Pulse Resp BP Pulse Ox 98.5 F 111 H 18 174/85 H 100 11/04/16 18:39 11/04/16 18:39 11/04/16 18:39 11/04/16 18:39 11/04/16 18:39 - General General appearance: Appears well, Alert In distress: None - HEENT Head: Normocephalic, Atraumatic Eyes: Normal Nasal: Normal Mouth/Lips: Normal Mucous membranes: Normal Neck: Normal, Supple. No: Lymphadenopathy - Respiratory Respiratory status: No respiratory distress Chest status: Nontender Breath sounds: Normal. No: Rales, Rhonchi, Stridor, Wheezing Chest palpation: Normal - Cardiovascular Rhythm: Regular Heart sounds: S1 appreciated, S2 appreciated Murmur: No - Abdominal Inspection: Normal Bowel sounds: Normal Tenderness: Nontender - Back Back: Normal, Nontender. No: CVA tenderness - Extremities General upper extremity: Normal inspection, Normal ROM General lower extremity: Normal ROM, Other - Rash to bilateral thighs and anterior aspect of bilateral lower legs - Neurological Neuro grossly intact: Yes Cognition: Normal [place] Coma Scale Eye Opening: Spontaneous [place] Coma Scale Verbal: Oriented [place]sy Coma Scale Motor: Obeys Commands [place] Coma Scale Total: 15 - Psychological Associated symptoms: Normal affect, Normal mood - Skin Skin Temperature: Warm Skin Moisture: Dry Skin Color: Erythema - Erythematous rash to anterior aspect of bilateral thighs and lower extremities, area warm to touch and nonblanching. Skin irregularity: Rash - Erythematous rash concerning for vasculitis. negative : Abscess Location of irregularity: Extremities Character of irregularity: Erythematous Irregularity with: Warmth Course - Re-evaluation Re-evalutation: 11/04/16 21:34 Patient told RN that she was having chest pressure. Provider to room. Patient states that she has had chest pressure off and on over the past year but states she has had persistent symptoms over the past 4 days. Patient states she attributed to anxiety. Patient states that it is not a pain but describes it as a pressure. Patient denies any cough or cold symptoms. 11/04/16 23:[address] Alvarado regarding patient presentation as well as diagnostic test results. Agrees with plan for discharge pending normal troponin test. Does not recommend any medications to treat her vasculitis type skin rash. 11/05/16 00:31 Patient states that she is feeling much better after the IV fluids, vital signs stable. 11/05/16 00:45 Patient with a history of hyponatremia in the past. Patient has previously been admitted for hyponatremia due to hypovolemia in the past. Patient complained of dehydration and was rehydrated here in the emergency department. Patient clinically is feeling better. The patient has atypical chest pain as the patient's chest pain is not suggestive of pulmonary embolus, cardiac ischemia, aortic dissection, or other serious etiology. Given the extremely low risk of these diagnoses for the test in evaluation for these possibilities does not appear to be indicated at this time. Patient has been instructed to return if the symptoms worsen or change in any way. Patient advised that she will need to follow-up with her primary doctor tomorrow for recheck and will likely need follow-up with dermatology for further evaluation of her rash. - Vital Signs Vital signs: Temp Pulse Resp BP Pulse Ox 97.5 F 98 18 126/60 H 98 11/04/16 21:30 11/05/16 01:17 11/05/16 01:17 11/05/16 01:17 11/05/16 01:17 - Laboratory Result Diagrams: 11/04/16 20:20 11/04/16 20:20 Laboratory results interpreted by me: 11/04/16 11/04/16 11/04/16 20:20 20:20 21:20 WBC 11.9 H Hgb 11.5 L Hct 33.6 L RDW 14.2 H Seg Neutrophils % 83.3 H Lymphocytes % 10.9 L Absolute Neutrophils 9.9 H Sodium 126.0 L Chloride 91 L Carbon Dioxide 18 L BUN 6 L Direct Bilirubin 0.5 H AST 13 L Alkaline Phosphatase 154 H Urine Ketones 20 H Urine Blood MODERATE H Ur Leukocyte Esterase TRACE H Labs- Entire Visit 11/04/16 11/04/16 11/04/16 20:20 20:20 20:50 WBC 11.9 H RBC 3.92 Hgb 11.5 L Hct 33.6 L MCV 86 MCH 29.3 MCHC 34.2 RDW 14.2 H Plt Count 297 Seg Neutrophils % 83.3 H Lymphocytes % 10.9 L Monocytes % 5.5 Eosinophils % 0.1 Basophils % 0.2 Absolute Neutrophils 9.9 H Absolute Lymphocytes 1.3 Absolute Monocytes 0.7 Absolute Eosinophils 0.0 Absolute Basophils 0.0 Sodium 126.0 L Potassium 4.3 Chloride 91 L Carbon Dioxide 18 L Anion Gap 17 BUN 6 L Creatinine 0.63 Est GFR ( Amer) > 60 Est GFR (Non-Af Amer) > 60 Glucose 109 Calcium 9.9 Total Bilirubin 1.1 Direct Bilirubin 0.5 H Indirect Bilirubin Not Reportable Neonat Total Bilirubin Not Reportable AST 13 L ALT 30 Alkaline Phosphatase 154 H Creatine Kinase 103 CK-MB (CK-2) Troponin I Total Protein 7.5 Albumin 4.6 Urine Color Urine Appearance Urine pH Ur Specific [place] Urine Protein Urine Glucose (UA) Urine Ketones Urine Blood Urine Nitrite Urine Bilirubin Urine Urobilinogen Ur Leukocyte Esterase Urine WBC (Auto) Urine RBC (Auto) Urine Mucus (Auto) Urine Ascorbic Acid Urine Opiates Screen Urine Methadone Screen Ur Barbiturates Screen Ur Phencyclidine Scrn Ur Amphetamines Screen U Benzodiazepines Scrn Urine Cocaine Screen U Marijuana (THC) Screen 11/04/16 11/04/16 11/04/16 21:20 21:20 22:15 WBC RBC Hgb Hct MCV MCH MCHC RDW Plt Count Seg Neutrophils % Lymphocytes % Monocytes % Eosinophils % Basophils % Absolute Neutrophils Absolute Lymphocytes Absolute Monocytes Absolute Eosinophils Absolute Basophils Sodium Potassium Chloride Carbon Dioxide Anion Gap BUN Creatinine Est GFR ( Amer) Est GFR (Non-Af Amer) Glucose Calcium Total Bilirubin Direct Bilirubin Indirect Bilirubin Neonat Total Bilirubin AST ALT Alkaline Phosphatase Creatine Kinase CK-MB (CK-2) 1.30 Troponin I < 0.012 Total Protein Albumin Urine Color COLORLESS Urine Appearance CLEAR Urine pH 7.0 Ur Specific [place] 1.001 Urine Protein NEGATIVE Urine Glucose (UA) NEGATIVE Urine Ketones 20 H Urine Blood MODERATE H Urine Nitrite NEGATIVE Urine Bilirubin NEGATIVE Urine Urobilinogen NEGATIVE Ur Leukocyte Esterase TRACE H Urine WBC (Auto) 0 Urine RBC (Auto) 0 Urine Mucus (Auto) RARE Urine Ascorbic Acid NEGATIVE Urine Opiates Screen NEGATIVE Urine Methadone Screen NEGATIVE Ur Barbiturates Screen NEGATIVE Ur Phencyclidine Scrn NEGATIVE Ur Amphetamines Screen NEGATIVE U Benzodiazepines Scrn NEGATIVE Urine Cocaine Screen NEGATIVE U Marijuana (THC) Screen NEGATIVE - Diagnostic Test Radiology reviewed: Reports reviewed Discharge - Discharge Clinical Impression: Skin rash, hx interstitial cystitis, History of anxiety, Hyponatremia, Dehydration Chest pain Qualifiers: Chest pain type: unspecified Qualified Code(s): R07.9 - Chest pain, unspecified Condition: Stable Disposition: HOME, SELF-CARE Instructions: Anxiety ([facility]), Chest Pain of Unclear Cause ([facility]), Dehydration ( [facility]), Hyponatremia ([facility]), Vasculitis ([facility]) Additional Instructions: Return immediately for any new or worsening symptoms Followup with your primary care provider, call tomorrow to make a followup appointment Follow-up with a pony roll finisher for further evaluation of your skin rash. You may possibly need a biopsy of this area. Your sodium was low today, your primary doctor will need to recheck this lab result. Call them tomorrow for an appointment. Referrals: ABBI NEWBERRY MD [ACTIVE STAFF] - Follow up as needed NINFA GARCIA MD [NO LOCAL MD] - Follow up tomorrow MARIANO GIBBS DO [ACTIVE STAFF] - Follow up tomorrow
[2016-11-04] MEDS: NORMAL SALINE 1000 ML 1,000 ML IV PRN ×2 (20:24→22:12)
[2016-11-04 20:43] LABS: ABSOLUTE LYMPHOCYTES (AUTO) 1.3 10^3/uL (0.5-4.7); ABSOLUTE MONOCYTES (AUTO) 0.7 10^3/uL (0.1-1.4); ABSOLUTE NEUT (AUTO) 9.9 10^3/uL (1.7-8.2); BASOPHILS % (AUTO) 0.2 % (0-2); EOSINOPHILS % (AUTO) 0.1 % (0-6); HEMATOCRIT 33.6 % (36.0-47.0); HEMOGLOBIN 11.5 g/dL (12.0-15.5); HGB HCT DIFFERENCE 0.9; LYMPHOCYTES % (AUTO) 10.9 % (13-45); MEAN CORPUSCULAR HEMOGLOBIN 29.3 pg (27.0-33.4); MEAN CORPUSCULAR HGB CONC 34.2 g/dL (32.0-36.0); MEAN CORPUSCULAR VOLUME 86 fl (80-97); MONOCYTES % (AUTO) 5.5 % (3-13); RED BLOOD COUNT 3.92 10^6/uL (3.72-5.28); RED CELL DISTRIBUTION WIDTH 14.2 % (11.5-14.0); SEGMENTED NEUTROPHILS % (AUTO) 83.3 % (42-78); WHITE BLOOD COUNT 11.9 10^3/uL (4.0-10.5)
[2016-11-04 21:01] LABS: ALANINE AMINOTRANSFERASE 30 U/L (9-52); ALBUMIN 4.6 g/dL (3.5-5.0); ALKALINE PHOSPHATASE 154 U/L (38-126); ANION GAP 17 (5-19); ASPARTATE AMINO TRANSFERASE 13 U/L (14-36); BILIRUBIN,DIRECT 0.5 mg/dL (0.0-0.4); BILIRUBIN,TOTAL 1.1 mg/dL (0.2-1.3); BLOOD UREA NITROGEN 6 mg/dL (7-20); CALCIUM 9.9 mg/dL (8.4-10.2); CARBON DIOXIDE 18 mmol/L (22-30); CHLORIDE 91 mmol/L (98-107); CREATININE RESULT 0.63 mg/dL (0.52-1.25); GLUCOSE 109 mg/dL (75-110); POTASSIUM 4.3 mmol/L (3.6-5.0); TOTAL PROTEIN 7.5 g/dL (6.3-8.2)
[2016-11-04] MEDS ORDERED: NORMAL SALINE 1000 ML 1,000 ML IV ONE (21:27)
[2016-11-04] MEDS ORDERED: ASPIRIN 81 MG TABLET, CHEWABLE PO ONE (21:33)
[2016-11-04 21:44] LABS: APPEARANCE,URINE CLEAR; BILIRUBIN,URINE NEGATIVE (NEGATIVE); GLUCOSE, URINE NEGATIVE (NEGATIVE); KETONES,URINE 20 mg/dL (NEGATIVE); LEUKOCYTE ESTERASE,URINE TRACE (NEGATIVE); NITRITE,URINE NEGATIVE (NEGATIVE); PROTEIN,URINE NEGATIVE (NEGATIVE); URINE SPECIFIC GRAVITY 1.001; UROBILINOGEN,URINE NEGATIVE mg/dL (<2.0)
[2016-11-04 21:59] LABS: URINE BARBITURATES SCREEN NEGATIVE; URINE METHADONE SCREEN NEGATIVE; URINE OPIATES LOW NEGATIVE; URINE PHENCYCLIDINE SCREEN NEGATIVE
--- NOTE | 2016-11-04 22:08 | RADIOLOGY REPORT (SQ) ---
EXAM DESCRIPTION: CHEST PA/LAT COMPLETED DATE/TIME: 11/04/2016 10:00 pm REASON FOR STUDY: cp COMPARISON: 12/15/2015 EXAM PARAMETERS: NUMBER OF VIEWS: two views TECHNIQUE: Digital Frontal and Lateral radiographic views of the chest acquired. RADIATION DOSE: NA LIMITATIONS: none FINDINGS: LUNGS AND PLEURA: No opacities, masses or pneumothorax. No pleural effusion. MEDIASTINUM AND HILAR STRUCTURES: No masses or contour abnormalities. HEART AND VASCULAR STRUCTURES: Heart normal size. No evidence for failure. BONES: No acute findings. HARDWARE: None in the chest. OTHER: No other significant finding. IMPRESSION: NO SIGNIFICANT RADIOGRAPHIC FINDING IN THE CHEST. TECHNICAL DOCUMENTATION: JOB ID: [id number] [employer]- All Rights Reserved
--- NOTE | 2016-11-04 22:37 | EKG REPORT ---
SEVERITY:- ABNORMAL ECG - SINUS RHYTHM VIN, CONSIDER BIATRIAL ABNORMALITIES BORDERLINE T ABNORMALITIES, ANTERIOR LEADS : Confirmed by: Yolanda Greenfield 04-Nov-2016 22:36:48
[2016-11-04 22:58] LABS: TROPONIN I < 0.012 ng/mL
[2016-11-05 01:17] VITALS: BP 126/60
== END 2016-11-05 02:02 | disposition home or self-care (01) ==
LOC: ER 18:31
DX: E86.0 Dehydration (principal); E87.1 Hypo-osmolality and hyponatremia; R21 Rash and other nonspecific skin eruption; R33.9 Retention of urine, unspecified; R07.9 Chest pain, unspecified; R11.2 Nausea with vomiting, unspecified; E78.00 Pure hypercholesterolemia, unspecified; I10 Essential (primary) hypertension; E03.9 Hypothyroidism, unspecified; Z88.2 Allergy status to sulfonamides; Z88.6 Allergy status to analgesic agent; Z87.442 Personal history of urinary calculi; Z90.49 Acquired absence of other specified parts of digestive tract
CPT/HCPCS: 93005; 99284; 96360; 96361; 36415; 87086; 82553; 82550; 85025; 80053; 81001; 84484; 80307; 71020; 93010; A9270; J7030

== ENCOUNTER 2016-11-12 05:11 | Emergency (ER) | payer MEDICARE, BC ==
[2016-11-12] MEDS ORDERED: ONDANSETRON HCL INJ/PF 4 MG/2 ML SDV IV ONE (05:41)
[2016-11-12] MEDS ORDERED: NORMAL SALINE 1000 ML 1,000 ML IV ONE (05:42)
--- NOTE | 2016-11-12 05:45 | ER Document Report ---
ED Medical Screen (RME) - General Chief Complaint: Flank Pain Stated Complaint: FLANK PAIN Time Seen by Provider: 11/12/16 05:38 Notes: 61-year-old female, well-known to this department, chief complaint of sudden onset of bilateral flank pain in the evening, she states she feels like she cannot urinate, she urinated earlier this evening. She denies fever, she reports nausea but denies vomiting. She reports history of kidney stones. She denies any specific abdominal pain. She comes by EMS. TRAVEL OUTSIDE OF THE [place] IN LAST 30 DAYS: No - Related Data Allergies/Adverse Reactions: Sulfa (Sulfonamide Antibiotics) Allergy (Severe, Verified 11/04/16 18:42) rash morphine [Morphine] Allergy (Intermediate, Verified 11/04/16 18:42) Hives Past Medical History - Past Medical History Cardiac Medical History: Reports: Hx Hypercholesterolemia, Hx Hypertension Pulmonary Medical History: Reports: Hx Asthma Neurological Medical History: Reports: Hx Migraine Endocrine Medical History: Reports: Hx Hypothyroidism Renal/ Medical History: Reports: Hx Kidney Stones. 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 No: Tender, Guarding - Back Back: Normal. No: Tender, CVA tenderness
[2016-11-12 06:31] LABS: ABSOLUTE BASOPHILS # (AUTO) 0.1 10^3/uL (0.0-0.2); ABSOLUTE EOSINOPHILS # (AUTO) 0.2 10^3/uL (0.0-0.6); ABSOLUTE LYMPHOCYTES (AUTO) 2.4 10^3/uL (0.5-4.7); ABSOLUTE MONOCYTES (AUTO) 0.8 10^3/uL (0.1-1.4); ABSOLUTE NEUT (AUTO) 8.3 10^3/uL (1.7-8.2); BASOPHILS % (AUTO) 0.6 % (0-2); EOSINOPHILS % (AUTO) 1.6 % (0-6); HEMATOCRIT 33.5 % (36.0-47.0); HEMOGLOBIN 11.4 g/dL (12.0-15.5); HGB HCT DIFFERENCE 0.7; LYMPHOCYTES % (AUTO) 20.5 % (13-45); MEAN CORPUSCULAR HEMOGLOBIN 28.9 pg (27.0-33.4); MEAN CORPUSCULAR HGB CONC 34.1 g/dL (32.0-36.0); MEAN CORPUSCULAR VOLUME 85 fl (80-97); RED BLOOD COUNT 3.96 10^6/uL (3.72-5.28); RED CELL DISTRIBUTION WIDTH 14.5 % (11.5-14.0); SEGMENTED NEUTROPHILS % (AUTO) 70.3 % (42-78); WHITE BLOOD COUNT 11.8 10^3/uL (4.0-10.5)
--- NOTE | 2016-11-12 06:33 | RADIOLOGY REPORT (SQ) ---
EXAM DESCRIPTION: [employer] COMPLETED DATE/TIME: 11/12/2016 6:20 am REASON FOR STUDY: flank pain, hx kidney stones COMPARISON: CT, 09/27/2015. TECHNIQUE: Dynamic and static grayscale images acquired of the kidneys and bladder and recorded on P ACS. Additional selected color Doppler and spectral images recorded. LIMITATIONS: None. FINDINGS: RIGHT KIDNEY: Normal size. 8.9 cm. Normal echogenicity. No solid or suspicious masses . No hydronephrosis. No calcifications. LEFT KIDNEY: Normal size. 9.1 cm. Normal echogenicity. No solid or suspicious masses. No hydro nephrosis. No calcifications. BLADDER: No masses. Moderately distended. Partially obscured due to patient position. OTHER FINDINGS: No other significant finding. IMPRESSION: No significant abnormality. TECHNICAL DOCUMENTATION: JOB ID: [id number] [employer]- All Rights Reserved
[2016-11-12 06:40] LABS: APPEARANCE,URINE CLEAR; BILIRUBIN,URINE NEGATIVE (NEGATIVE); GLUCOSE, URINE NEGATIVE (NEGATIVE); KETONES,URINE NEGATIVE (NEGATIVE); LEUKOCYTE ESTERASE,URINE NEGATIVE (NEGATIVE); NITRITE,URINE NEGATIVE (NEGATIVE); PROTEIN,URINE NEGATIVE (NEGATIVE); URINE SPECIFIC GRAVITY 1.001; UROBILINOGEN,URINE NEGATIVE mg/dL (<2.0)
[2016-11-12 06:50] LABS: ALANINE AMINOTRANSFERASE 26 U/L (9-52); ALBUMIN 4.3 g/dL (3.5-5.0); ALKALINE PHOSPHATASE 131 U/L (38-126); ANION GAP 12 (5-19); ASPARTATE AMINO TRANSFERASE 12 U/L (14-36); BILIRUBIN,DIRECT 0.4 mg/dL (0.0-0.4); BILIRUBIN,TOTAL 0.7 mg/dL (0.2-1.3); BLOOD UREA NITROGEN 7 mg/dL (7-20); CALCIUM 9.7 mg/dL (8.4-10.2); CARBON DIOXIDE 22 mmol/L (22-30); CHLORIDE 92 mmol/L (98-107); CREATININE RESULT 0.59 mg/dL (0.52-1.25); GLUCOSE 100 mg/dL (75-110); SODIUM 126.2 mmol/L (137-145); TOTAL PROTEIN 7.2 g/dL (6.3-8.2)
--- NOTE | 2016-11-12 07:19 | ER Document Report ---
ED GI/ - General Chief Complaint: Flank Pain Stated Complaint: FLANK PAIN Time Seen by Provider: 11/12/16 05:38 Mode of Arrival: Ambulatory Information source: Patient Notes: Patient is a 61-year-old female who presents to the ER today for back pain all over the back. Patient has a history of interstitial cystitis. She denies any dysuria, fever, chills, abdominal pain, chest pain, blood in her urine. Patient denies any injury. Patient cannot really give me a pattern of the pain or where it radiates to. Patient cannot really describe the pain. TRAVEL OUTSIDE OF THE [place] IN LAST 30 DAYS: No - Related Data Allergies/Adverse Reactions: Sulfa (Sulfonamide Antibiotics) Allergy (Severe, Verified 11/04/16 18:42) rash morphine [Morphine] Allergy (Intermediate, Verified 11/04/16 18:42) Hives Past Medical History - General Information source: Patient - Social History Smoking Status: Unknown if Ever Smoked Family History: CVA, Hyperlipidemia, Hypertension, Malignancy, Thyroid Disfunction - Past Medical History Cardiac Medical History: Reports: Hx Hypercholesterolemia, Hx Hypertension Pulmonary Medical History: Reports: Hx Asthma Neurological Medical History: Reports: Hx Migraine Endocrine Medical History: Reports: Hx Hypothyroidism Renal/ Medical History: Reports: Hx Kidney Stones. 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, Reports Hx Fibromyalgia, Reports Hx Musculoskeletal Trauma Traumatic Medical History: Reports: Hx Fractures - left wrist Past Surgical History: Reports: Hx Appendectomy, Hx Cholecystectomy, Hx Genitourinary Surgery - Bladder surgery annually, Hx Tonsillectomy - Immunizations Immunizations up to date: Yes Hx Diphtheria, Pertussis, Tetanus Vaccination: Yes - 2009 Hx Pneumococcal Vaccination: 02/24/00 Review of Systems - Review of Systems Constitutional: No symptoms reported EENT: No symptoms reported Cardiovascular: No symptoms reported Respiratory: No symptoms reported Gastrointestinal: No symptoms reported Genitourinary: See HPI Female Genitourinary: No symptoms reported Musculoskeletal: No symptoms reported Skin: No symptoms reported Hematologic/Lymphatic: No symptoms reported Neurological/Psychological: No symptoms reported Physical Exam - Notes Notes: PHYSICAL EXAMINATION: GENERAL: Pacing around room, anxious appearing, but in no acute distress. HEAD: Atraumatic, normocephalic. NECK: Normal range of motion, supple without lymphadenopathy LUNGS: CTAB and equal. No wheezes rales or rhonchi. HEART: Regular rate and rhythm without murmurs ABDOMEN: Soft, no tenderness. No guarding, no rebound BACK: no vertebral tenderness, normal ROM GI/: no CVA tenderness EXTREMITIES: Normal range of motion, no pitting edema. No cyanosis. NEUROLOGICAL: Cranial nerves grossly intact. Normal sensory/motor exams. PSYCH: Anxious SKIN: Warm, Dry, normal turgor, no rashes or lesions noted Course - Re-evaluation Re-evalutation: 11/12/16 07:30 Patient easily give us a urine sample today. It showed no signs of infection at all. Patient usually has hematuria. Patient's sodium is usually low and it is at its baseline today. Patient has gotten some IV fluids here but keeps complaining that she has been "over-fluided" and wants to be disconnected from the IV fluids as she continues to urinate in the room, it is crystal clear in color. Lab work is unremarkable today. Patient is completely nontender to back or abdomen on exam. renal Ultrasound reveals no acute pathology. 11/12/16 07:32 11/12/16 07:59 Pt called me back into the room multiple times during ER visit because she "doesn't feel like going home" she continues to complain about kidney pain but cannot exactly point to me where it hurts and it is completely nontender over her entire back, then she continues to complain that she "cannot pee" although she has urinated multiple times here and her complaint when I first walked into the room was that she at that time "couldn't stop peeing." Her vitals are all stable here. She is afebrile. - Laboratory Result Diagrams: 11/12/16 05:57 11/12/16 05:57 Laboratory results interpreted by me: 11/12/16 11/12/16 11/12/16 05:57 05:57 06:24 WBC 11.8 H Hgb 11.4 L Hct 33.5 L RDW 14.5 H Absolute Neutrophils 8.3 H Sodium 126.2 L Chloride 92 L AST 12 L Alkaline Phosphatase 131 H Urine Blood MODERATE H Discharge - Discharge Clinical Impression: Back pain Qualifiers: Back pain location: back pain in unspecified location Chronicity: unspecified Back pain laterality: bilateral Qualified Code(s): M54.9 - Dorsalgia, unspecified Condition: Stable Disposition: HOME, SELF-CARE Additional Instructions: You do not have a urinary tract infection today, your blood work and urine were fine today. Return immediately for any new or worsening symptoms. Follow up with primary care provider, call tomorrow to make followup appointment.
== END 2016-11-12 07:57 | disposition home or self-care (01) ==
LOC: ER 05:11
DX: M54.9 Dorsalgia, unspecified (principal); R10.9 Unspecified abdominal pain
CPT/HCPCS: 99283; 96361; 96374; 36415; 85025; 80053; 81001; 76775; J2405; J7030

== ENCOUNTER 2016-12-04 16:32 | Emergency (ER) | payer MEDICARE, BC ==
[2016-12-04] MEDS ORDERED: ASPIRIN 81 MG TABLET, CHEWABLE PO ONE (17:30)
[2016-12-04] MEDS ORDERED: NITROGLYCERIN 0.4 MG/TAB 25 TAB/BOTTLE SL PRN (17:30)
--- NOTE | 2016-12-04 17:30 | ER Document Report ---
ED Medical Screen (RME) - General TRAVEL OUTSIDE OF THE [place] IN LAST 30 DAYS: No - HPI Patient complains to provider of: Chest pain and inability to void Onset: This morning Associated Symptoms: Other - see notes above <LALA GALDAMEZ - Last Filed: 12/04/16 18:43> <SUE RAZO - Last Filed: 12/04/16 19:48> - General Chief Complaint: Chest Pressure Stated Complaint: CHEST PAIN Time Seen by Provider: 12/04/16 17:23 Notes: 61-year-old female with history of hypercholesterolemia and hypertension presents to the ED complaining of substernal chest pain and inability to void that started this morning. Patient reports that it "feels like an elephant is sitting on my chest". Patient has not been able to void since 0600, but states that she has been constantly drinking fluids since then. Patient is additionally complaining of nausea and vomiting that started last night. Patient had a cardiac stress test performed 3 years ago which was negative. Patient denies history of GA or stents. (LALA GALDAMEZ) - Related Data Allergies/Adverse Reactions: Sulfa (Sulfonamide Antibiotics) Allergy (Severe, Verified 12/04/16 16:45) rash morphine [Morphine] Allergy (Intermediate, Verified 12/04/16 16:45) Hives Past Medical History - General Information source: Patient - Social History Chew tobacco use (# tins/day): No Frequency of alcohol use: None Drug Abuse: None Family history: Reviewed & Not Pertinent - Past Medical History Cardiac Medical History: Reports: Hx Hypercholesterolemia, Hx Hypertension Pulmonary Medical History: Reports: Hx Asthma Neurological Medical History: Reports: Hx Migraine Endocrine Medical History: Reports: Hx Hypothyroidism Renal/ Medical History: Reports: Hx Kidney Stones. 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, Reports Hx Fibromyalgia, Reports Hx Musculoskeletal Trauma Traumatic Medical History: Reports: Hx Fractures - left wrist Past Surgical History: Reports: Hx Appendectomy, Hx Cardiac Catheterization, Hx Cholecystectomy, Hx Genitourinary Surgery - Bladder surgery annually, Hx Tonsillectomy - Immunizations Immunizations up to date: Yes Hx Diphtheria, Pertussis, Tetanus Vaccination: Yes - 2009 History of Influenza Vaccine for 11/2016 - 04/2017 Season: No <LALA GALDAMEZ - Last Filed: 12/04/16 18:43> Review of Systems - Review of Systems Constitutional: No symptoms reported EENT: No symptoms reported Cardiovascular: See HPI, Chest pain Respiratory: No symptoms reported Gastrointestinal: See HPI, Nausea, Vomiting Genitourinary: See HPI, Retention Female Genitourinary: No symptoms reported Musculoskeletal: No symptoms reported Skin: No symptoms reported Hematologic/Lymphatic: No symptoms reported Neurological/Psychological: No symptoms reported -: Yes All other systems reviewed and negative <LALA GALDAMEZ - Last Filed: 12/04/16 18:43> Physical Exam - General General appearance: Alert, Other - Patient is squinting and appears uncomfortable. In distress: None - Respiratory Respiratory status: No respiratory distress Breath sounds: Normal - Cardiovascular Rhythm: Regular Heart sounds: Normal auscultation Murmur: No Friction rub: No Gallop: None auscultated - Psychological Associated symptoms: Other - bizzare affect. No: Normal affect <LALA GALDAMEZ - Last Filed: 12/04/16 18:43> - Vital signs Vitals: Resp 17 12/04/16 16:46 Course - Laboratory Result Diagrams: 12/04/16 18:14 12/04/16 18:14 <LALA GALDAMEZ - Last Filed: 12/04/16 18:43> - Laboratory Result Diagrams: 12/04/16 18:14 12/04/16 18:14 <SUE RAZO - Last Filed: 12/04/16 19:48> - Re-evaluation Re-evalutation: 12/04/16 17:[address] the [facility] doc box and says that she is ready to urinate. When asked if she was given a urine cup, she states that she thought she had already given us one earlier. Patient appears to be confused. (LALA GALDAMEZ) - Vital Signs Vital signs: Temp Pulse Resp BP Pulse Ox 98.8 F 77 17 177/85 H 100 12/04/16 16:47 12/04/16 16:47 12/04/16 16:46 12/04/16 16:47 12/04/16 16:47 - Laboratory Laboratory results interpreted by me: 12/04/16 18:14 Sodium 130.6 L Chloride 96 L Carbon Dioxide 20 L BUN 6 L AST 11 L Scribe Documentation - Scribe Written by Dottie:: Dottie Granger, 12/04/2016 1849 acting as scribe for :: Julio C <LALA GALDAMEZ - Last Filed: 12/04/16 18:43>
[2016-12-04] MEDS ORDERED: ONDANSETRON HCL INJ/PF 4 MG/2 ML SDV IV ONE (17:31)
--- NOTE | 2016-12-04 18:22 | RADIOLOGY REPORT (SQ) ---
EXAM DESCRIPTION: CHEST SINGLE VIEW COMPLETED DATE/TIME: 12/04/2016 5:50 pm REASON FOR STUDY: chest pain, SOB COMPARISON: 07/01/2015, 11/04/2016 EXAM PARAMETERS: NUMBER OF VIEWS: One view. TECHNIQUE: Single frontal radiographic view of the chest acquired. RADIATION DOSE: NA LIMITATIONS: None. FINDINGS: LUNGS AND PLEURA: Stable benign right apical pleural-parenchymal scarring. No acute infiltrates. No pleural effusion. No pneumothorax. MEDIASTINUM AND HILAR STRUCTURES: No masses. Contour normal. HEART AND VASCULAR STRUCTURES: Heart normal in size. Normal vasculature. BONES: Convex rightward thoracic curvature HARDWARE: Clips right upper quadrant post cholecystectomy OTHER: No other significant finding. IMPRESSION: No acute findings TECHNICAL DOCUMENTATION: JOB ID: [id number]
[2016-12-04] MEDS ORDERED: ONDANSETRON 4 MG TAB.RAPDIS ONE (18:52)
[2016-12-04 18:53] LABS: ALANINE AMINOTRANSFERASE 34 U/L (9-52); ALBUMIN 4.6 g/dL (3.5-5.0); ALKALINE PHOSPHATASE 126 U/L (38-126); ANION GAP 15 (5-19); ASPARTATE AMINO TRANSFERASE 11 U/L (14-36); BILIRUBIN,DIRECT 0.4 mg/dL (0.0-0.4); BILIRUBIN,TOTAL 0.4 mg/dL (0.2-1.3); BLOOD UREA NITROGEN 6 mg/dL (7-20); CALCIUM 9.4 mg/dL (8.4-10.2); CARBON DIOXIDE 20 mmol/L (22-30); CHLORIDE 96 mmol/L (98-107); CREATINE KINASE 42 U/L (30-135); CREATININE RESULT 0.62 mg/dL (0.52-1.25); GLUCOSE 104 mg/dL (75-110); POTASSIUM 4.3 mmol/L (3.6-5.0); SODIUM 130.6 mmol/L (137-145)
[2016-12-04 19:15] LABS: CREATINE KINASE MB 0.39 ng/mL (<4.55)
[2016-12-04 19:46] LABS: TROPONIN I 0.063 ng/mL
[2016-12-04 19:54] LABS: ABSOLUTE BASOPHILS # (AUTO) 0.1 10^3/uL (0.0-0.2); ABSOLUTE EOSINOPHILS # (AUTO) 0.1 10^3/uL (0.0-0.6); ABSOLUTE LYMPHOCYTES (AUTO) 1.9 10^3/uL (0.5-4.7); ABSOLUTE MONOCYTES (AUTO) 0.6 10^3/uL (0.1-1.4); ABSOLUTE NEUT (AUTO) 4.2 10^3/uL (1.7-8.2); BASOPHILS % (AUTO) 1.2 % (0-2); HEMATOCRIT 35.1 % (36.0-47.0); HEMOGLOBIN 11.8 g/dL (12.0-15.5); HGB HCT DIFFERENCE 0.3; LYMPHOCYTES % (AUTO) 28.1 % (13-45); MEAN CORPUSCULAR HEMOGLOBIN 28.4 pg (27.0-33.4); MEAN CORPUSCULAR HGB CONC 33.5 g/dL (32.0-36.0); MEAN CORPUSCULAR VOLUME 85 fl (80-97); MONOCYTES % (AUTO) 8.2 % (3-13); RED BLOOD COUNT 4.15 10^6/uL (3.72-5.28); RED CELL DISTRIBUTION WIDTH 14.8 % (11.5-14.0); SEGMENTED NEUTROPHILS % (AUTO) 60.5 % (42-78); WHITE BLOOD COUNT 6.9 10^3/uL (4.0-10.5)
--- NOTE | 2016-12-04 19:55 | EKG REPORT ---
SEVERITY:- NORMAL ECG - SINUS RHYTHM : Confirmed by: Ashkan Mcclelland MD 04-Dec-2016 19:53:44
--- NOTE | 2016-12-04 22:27 | ER Document Report ---
ED General - General Chief Complaint: Chest Pressure Stated Complaint: CHEST PAIN Time Seen by Provider: 12/04/16 17:23 Notes: Patient is a 61-year-old female who presents with complaint of pressure and "vice peanut salter" sensation in her chest. It started this morning. No fevers. No recent infections. Some mild shortness of breath. She has some lower abdominal pain which says is chronic from her history of interstitial cystitis. She says she typically does not have this type of pressure tightness in her chest. She has no history of coronary disease. She did have a negative cardiac stress test just over 3 years ago. She does not smoke. She does not drink. She does have history of hypertension and high cholesterol. TRAVEL OUTSIDE OF THE [place] IN LAST 30 DAYS: No - Related Data Allergies/Adverse Reactions: Sulfa (Sulfonamide Antibiotics) Allergy (Severe, Verified 12/04/16 16:45) rash morphine [Morphine] Allergy (Intermediate, Verified 12/04/16 16:45) Hives Past Medical History - General Information source: Patient - Social History Smoking Status: Never Smoker Chew tobacco use (# tins/day): No Frequency of alcohol use: None Drug Abuse: None Family History: CVA, Hyperlipidemia, Hypertension, Malignancy, Thyroid Disfunction Patient has suicidal ideation: No - Past Medical History Cardiac Medical History: Reports: Hx Hypercholesterolemia, Hx Hypertension Pulmonary Medical History: Reports: Hx Asthma Neurological Medical History: Reports: Hx Migraine Endocrine Medical History: Reports: Hx Hypothyroidism Renal/ Medical History: Reports: Hx Kidney Stones. 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 Denies recent illness. EENT: Denies eye, ear, throat, or mouth pain or symptoms. Denies nasal or sinus congestion. CARDIOVASCULAR: Chest pressure. RESPIRATORY: Denies cough, cold, or chest congestion. Denies shortness of breath, difficulty breathing, or wheezing. GASTROINTESTINAL: Denies abdominal pain. Denies nausea, vomiting, or diarrhea. Denies constipation. Last BM: MUSCULOSKELETAL: Denies neck or back pain or joint pain or swelling. SKIN: Denies rash or skin lesions. NEUROLOGICAL: Denies altered mental status or loss of consciousness. Denies headache. Denies weakness or paralysis or loss of use of either side. Denies problems with gait or speech. Denies sensory or motor loss. ALL OTHER SYSTEMS REVIEWED AND NEGATIVE. Physical Exam - Vital signs Vitals: Resp 17 12/04/16 16:46 - Notes Notes: General Appearance: Well nourished, alert, cooperative, no acute distress, mild to moderate obvious discomfort. Vitals: reviewed, See vital signs table. Head: no swelling or tenderness to the head Eyes: PERRL, EOMI, Conjuctiva clear Mouth: No decreasd moisture Neck: Supple, no neck tenderness, No thyromegaly Lungs: No wheezing, No rales, No rhonci, No accessory muscle use, good air exchange bilaterally. Heart: Normal rate, Regular rythm, No murmur, no rub Abdomen: Normal BS, soft, No rigidity, mild lower abdominal tenderness palpation , No guarding, no rebound, no abdominal masses, no organomegaly Extremities: strength 5/5 in all extremities, good pulses in all extremities, no swelling or tenderness in the extremities, no edema. Skin: warm, dry, appropriate color, no rash Neuro: speech clear, oriented x 3, normal affect, responds appropriately to questions. Course - Re-evaluation Re-evalutation: 12/05/16 00:58 Patient's first troponin was 0.063. Her repeat troponin IV hours later was 0.012. This suggests to me that either 1 of the troponins is most likely incorrect as I would not expect it to decrease that much and says short timeframe. I will order a third troponin now just to clarify if the initial troponin with a repeat troponin most likely is correct. 12/05/16 03:31 Was initially going to order a CT of the chest she was intermittently mildly tachycardic. I think PE is less likely however being that she did have some intermittent mild tachycardia was can order CT of the chest. We are having difficulty obtaining IV that would be appropriate for CTA. I therefore ordered a d-dimer. If the d-dimer is positive then we will do a VQ scan. 12/05/16 04:08 Patient's d-dimer is negative. I went to reassess her. She says she feels much improved. She said that Ativan helps first pressure and symptoms a lot. Also she said she Steffany in all her sensation of pressure is now gone. She has had 3 negative troponins. She has negative d-dimer. Chest x-ray is negative. Her heart score is 3 based on age, risk factor, and story. Nitroglycerin had no effect on her pain. I feel that she is an appropriate outpatient follow-up. I informed her we will have her follow-up with the on-call director of child welfare services for possible outpatient stress test if they feel that this was necessary. I did talk to her about cardiac risks informed her that her risk at this point is low however if she has recurrent chest pain, difficulty breathing, or feels unwell she must return to the ER immediately. Patient agrees with plan will be discharged home. 12/05/16 04:12 - Vital Signs Vital signs: Temp Pulse Resp BP Pulse Ox 98.8 F 77 16 153/91 H 100 12/04/16 16:47 12/04/16 16:47 12/05/16 01:43 12/05/16 02:40 12/05/16 03:00 - Laboratory Result Diagrams: 12/04/16 19:46 12/04/16 18:14 Laboratory results interpreted by me: 12/04/16 12/04/16 18:14 19:46 Hgb 11.8 L Hct 35.1 L RDW 14.8 H Sodium 130.6 L Chloride 96 L Carbon Dioxide 20 L BUN 6 L AST 11 L - EKG Interpretation by Me Additional EKG results interpreted by me: 12/04/16 22:27 EKG is reviewed and interpreted by me. EKG shows normal sinus rhythm with a rate of [address] segment elevation or depression. No ischemic T-wave inversions. ID interval, QRS duration, QTc intervals are within normal range. No old EKG available for comparison. 12/05/16 01:28 EKG #2 is reviewed and interpreted by me. EKG shows normal sinus rhythm with rate of [address] segment elevation or depression. No ischemic T-wave inversions. ID interval, QRS duration, QTc intervals are within normal range. Old EKG for comparison is from December 04, 2016. Discharge - Discharge Clinical Impression: Chest pain Qualifiers: Chest pain type: unspecified Qualified Code(s): R07.9 - Chest pain, unspecified Condition: Good Disposition: HOME, SELF-CARE Additional Instructions: CHEST PAIN OF UNCLEAR CAUSE: The exact cause of your chest pain isn't clear. Fortunately, there is no evidence of a dangerous medical condition. Further testing may be required to find the source of the pain. Most often, we find that this pain is coming from the chest wall -- the muscles or rib joints in the chest. But chest pain can come from the lung and lung lining, the esophagus, the heart valves or heart lining, and even the stomach or gallbladder. Rest. Eat lightly until the pain is gone. We may prescribe medicine for pain and inflammation. You should call the physician immediately if the pain radiates to the shoulder, jaw or arms; if you start to run a fever or develop a cough; or if you develop shortness of breath, or other new or alarming symptoms. NORMAL EXAM AND WORKUP: At this time, your examination and workup show no significant abnormality. No significant abnormal physical findings were noted. All laboratory, EKG, and imaging (x-ray) studies that were ordered show no significant abnormality. Although your examination and all studies that were ordered showed no significant abnormal finding, there are no examinations and no studies that are 100% accurate. There is always the possibility that some abnormality could exist and not be detected with physical examination or within the limits and capabilities of laboratory and other studies. You should return or follow up as you were instructed on your visit today for further evaluation if your symptoms do not resolve. FOLLOW-UP CARE: If you have been referred to a physician for follow-up care, call the physician s office for an appointment as you were instructed or within the next two days. If you experience worsening or a significant change in your symptoms, notify the physician immediately or return to the Emergency Department at any time for re-evaluation. Please return to the ER immediately if you have chest pain that is recurrent worsening, difficulty breathing, or feel unwell. Your heart workup was negative tonight. This does not mean that he should not return if you do have recurrence or worsening of her symptoms. We will still have a follow-up with the heart doctor, Dr. Newberry, for reevaluation and possible outpatient stress test. He is also follow-up with your family doctor on Thursday for close reevaluation. Referrals: NINFA GARCIA MD [Primary Care Provider] - 12/08/16 ABBI NEWBERRY MD [ACTIVE STAFF] - Follow up in 3-5 days
[2016-12-04] MEDS ORDERED: NITROGLYCERIN 2% OINTMENT 1 GM PACKET TP ONE (22:32)
[2016-12-05] MEDS ORDERED: MAG HYDROX/AL HYDROX/SIMETH SUSP 30 ML UDCUP PO ONE (01:00)
[2016-12-05] MEDS ORDERED: METOCLOPRAMIDE HCL ORAL SOLN 10 MG/10 ML UDCUP PO ONE (01:00)
[2016-12-05] MEDS ORDERED: LIDOCAINE 2% VISCOUS SOLN 20 ML UDCUP PO ONE (01:00)
[2016-12-05] MEDS ORDERED: NORMAL SALINE 1000 ML 1,000 ML IV ONE (02:25)
[2016-12-05] MEDS ORDERED: FENTANYL CITRATE INJ/PF 100 MCG/2 ML AMPUL IV ONE (02:25)
[2016-12-05] MEDS ORDERED: LORAZEPAM INJ 2 MG/1 ML VIAL IV ONE (03:03)
[2016-12-05 04:21] VITALS: BP 175/92
--- NOTE | 2016-12-05 08:16 | EKG REPORT ---
SEVERITY:- ABNORMAL ECG - SINUS RHYTHM PROBABLE LEFT ATRIAL ABNORMALITY CONSIDER ANTERIOR INFARCT BORDERLINE T ABNORMALITIES, ANTERIOR LEADS : Confirmed by: Ashkan Mcclelland MD 05-Dec-2016 08:14:44
== END 2016-12-05 04:25 | disposition home or self-care (01) ==
LOC: ER 16:32
DX: R07.89 Other chest pain (principal); J45.909 Unspecified asthma, uncomplicated; R00.0 Tachycardia, unspecified; R06.02 Shortness of breath; N30.10 Interstitial cystitis (chronic) without hematuria; I10 Essential (primary) hypertension; Z88.2 Allergy status to sulfonamides; Z88.5 Allergy status to narcotic agent
CPT/HCPCS: 93005 ×2; 99285; 36415; 82553; 82550; 85025; 80053; 84484; 85379; 71010; 93010 ×2; A9270 ×4; J3010; J3490; J2060; J7030; S0119

== ENCOUNTER 2016-12-13 19:16 | Emergency (ER) | payer MEDICARE, BC ==
[2016-12-13] MEDS ORDERED: LORAZEPAM 1 MG TABLET PO ONE (19:26)
--- NOTE | 2016-12-13 19:30 | ER Document Report ---
ED General - General Stated Complaint: CHEST PAIN Time Seen by Provider: 12/13/16 19:20 Notes: Patient is a 61 year old female that comes to the ED for chief complaint of a sensation a sensation of pain and tightness over her chest generally, symptoms started a couple of hours before arrival, she also states that she felt like she could not urinate, she states this caused her blood pressure to go up and then she started having tightness in her chest. She states she feels crazy. She was given 3 sublingual nitroglycerin prior to arrival, she took 4 baby aspirins after EMS arrived. Past medical history of hypothyroidism and hypertension, denies smoking or alcohol, denies personal or family history of heart disease or [place], denies recent travel or surgery, denies lower extremity swelling. She denies cough or fever. She had a negative stress test about 3 years ago. TRAVEL OUTSIDE OF THE [place] IN LAST 30 DAYS: No - Related Data Allergies/Adverse Reactions: Sulfa (Sulfonamide Antibiotics) Allergy (Severe, Verified 12/04/16 16:45) rash morphine [Morphine] Allergy (Intermediate, Verified 12/04/16 16:45) Hives Past Medical History - General Information source: Patient - Social History Smoking Status: Never Smoker Frequency of alcohol use: None Drug Abuse: None Lives with: Family Family History: CVA, Hyperlipidemia, Hypertension, Malignancy, Thyroid Disfunction - Past Medical History Cardiac Medical History: Reports: Hx Hypercholesterolemia, Hx Hypertension Pulmonary Medical History: Reports: Hx Asthma Neurological Medical History: Reports: Hx Migraine Endocrine Medical History: Reports: Hx Hypothyroidism Renal/ Medical History: Reports: Hx Kidney Stones. 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, Reports Hx Fibromyalgia, Reports Hx Musculoskeletal Trauma Traumatic Medical History: Reports: Hx Fractures - left wrist Past Surgical History: Reports: Hx Appendectomy, Hx Cardiac Catheterization, Hx Cholecystectomy, Hx Genitourinary Surgery - Bladder surgery annually, Hx Tonsillectomy - Immunizations Immunizations up to date: Yes Hx Diphtheria, Pertussis, Tetanus Vaccination: Yes - 2009 Hx Pneumococcal Vaccination: 02/24/00 Review of Systems - Review of Systems Constitutional: No symptoms reported EENT: No symptoms reported Cardiovascular: See HPI Respiratory: See HPI Gastrointestinal: No symptoms reported Genitourinary: No symptoms reported Female Genitourinary: No symptoms reported Musculoskeletal: No symptoms reported Skin: No symptoms reported Hematologic/Lymphatic: No symptoms reported Neurological/Psychological: See HPI Physical Exam - Vital signs Vitals: Temp 98.6 F 12/13/16 19:20 Interpretation: Normal - General General appearance: Alert, Anxious In distress: None - HEENT Head: Normocephalic, Atraumatic Eyes: Normal Conjunctiva: Normal Extraocular movements intact: Yes Eyelashes: Normal Pupils: PERRL Mouth/Lips: Normal Mucous membranes: Normal Pharynx: Normal Neck: Normal - Respiratory Respiratory status: No respiratory distress Chest status: Nontender Breath sounds: Normal Chest palpation: Normal - Cardiovascular Rhythm: Regular. No: Tachycardia Heart sounds: Normal auscultation, S1 appreciated, S2 appreciated Murmur: No - Abdominal Inspection: Normal Distension: No distension Bowel sounds: Normal Tenderness: Nontender. No: Tender, Guarding Organomegaly: No organomegaly - Back Back: Normal, Nontender. No: Tender, CVA tenderness - Extremities General upper extremity: Normal inspection, Nontender, Normal strength, Normal temperature General lower extremity: Normal inspection, Nontender, Normal strength, Normal temperature - Neurological Neuro grossly intact: Yes Cognition: Normal Orientation: AAOx4 Elsy Coma Scale Eye Opening: Spontaneous Elsy Coma Scale Verbal: Oriented Elsy Coma Scale Motor: Obeys Commands Jewell Coma Scale Total: 15 Speech: Normal Motor strength normal: LUE, RUE, LLE, RLE Sensory: Normal - Psychological Associated symptoms: Anxious - Skin Skin Temperature: Warm Skin Moisture: Dry Skin Color: Normal Course - Re-evaluation Re-evalutation: EKG shows sinus rhythm at a rate of 94 with no T-wave inversions or ST segment changes in consecutive leads. Normal axis. Unremarkable otherwise. Machine read is normal. Chest x-ray unremarkable. Patient with what appears to be anxiety on initial presentation, resolved after 1 mg of lorazepam. On reevaluation patient's only complaint is a headache, this is probably secondary to the nitroglycerin, she will be given medication for this. CBC, chemistry generally unremarkable except for some mild hyponatremia, this is improved compared to prior, initial troponin is negative, will cycle. D- dimer is not elevated. Patient is not tachycardic, non-smoker, no recent travel or surgery, no history of blood clots in the family or personally. Second troponin cycled and negative. Patient sleeping and easily aroused. I discussed with patient. She has a heart score of 3, I did discuss admission to the hospital, patient states that she has a close follow-up already scheduled with her primary care provider, she states she would prefer to see him in the next few days and discuss a stress test at that time instead of admission today. She does request something to help her with episodes where she feels like she gets so anxious to get she cannot do anything about it. I did discuss panic attacks, anxiety, she is not depressed, she denies SI or HI, she states that she will probably not even need the medication but she would like to have something as an option. She states she will come back to the emergency department if she worsens however, especially if she takes the medication and she does not improve. Patient discharged for her close primary care follow-up. - Vital Signs Vital signs: Temp Pulse Resp BP Pulse Ox 97.3 F 17 164/86 H 99 12/14/16 03:52 12/14/16 03:00 12/14/16 02:01 12/14/16 03:00 - Laboratory Result Diagrams: 12/13/16 21:58 12/13/16 21:58 Laboratory results interpreted by me: 12/13/16 12/13/16 12/13/16 21:28 21:58 21:58 Hgb 11.0 L Hct 31.6 L RDW 14.6 H Sodium 131.9 L Chloride 96 L BUN 5 L AST 12 L Alkaline Phosphatase 145 H Urine Blood MODERATE H Ur Leukocyte Esterase TRACE H Discharge - Discharge Clinical Impression: Anxiety Chest pain Qualifiers: Chest pain type: unspecified Qualified Code(s): R07.9 - Chest pain, unspecified Condition: Stable Disposition: HOME, SELF-CARE Additional Instructions: The exact cause of your symptoms tonight is uncertain. Your workup tonight does not show any concerning abnormalities. Please follow-up with your primary care this week as planned, discuss stress test and cardiology evaluation. Take the Lorazepam if needed in the event of panic attacks/anxiety attack. Return to the emergency department for any concerning or worsening symptoms. Prescriptions: Lorazepam [Ativan 1 mg Tablet] 1 mg PO Q4 PRN #10 tab PRN Reason:
[2016-12-13 21:41] LABS: APPEARANCE,URINE CLEAR; BILIRUBIN,URINE NEGATIVE (NEGATIVE); GLUCOSE, URINE NEGATIVE (NEGATIVE); KETONES,URINE NEGATIVE (NEGATIVE); LEUKOCYTE ESTERASE,URINE TRACE (NEGATIVE); NITRITE,URINE NEGATIVE (NEGATIVE); PROTEIN,URINE NEGATIVE (NEGATIVE); URINE SPECIFIC GRAVITY 1.001; UROBILINOGEN,URINE NEGATIVE mg/dL (<2.0)
--- NOTE | 2016-12-13 21:47 | RADIOLOGY REPORT (SQ) ---
EXAM DESCRIPTION: CHEST SINGLE VIEW COMPLETED DATE/TIME: 12/13/2016 8:00 pm REASON FOR STUDY: chest pain COMPARISON: None. EXAM PARAMETERS: NUMBER OF VIEWS: One view. TECHNIQUE: Single frontal radiographic view of the chest acquired. RADIATION DOSE: NA LIMITATIONS: None. FINDINGS: LUNGS AND PLEURA: No opacities, masses or pneumothorax. No pleural effusion. MEDIASTINUM AND HILAR STRUCTURES: No masses. Contour normal. HEART AND VASCULAR STRUCTURES: Heart normal in size. Normal vasculature. BONES: No acute findings. HARDWARE: None in the chest. OTHER: Cholecystectomy clips. IMPRESSION: NO ACUTE RADIOGRAPHIC FINDING IN THE CHEST. TECHNICAL DOCUMENTATION: JOB ID: [id number]
[2016-12-13] MEDS ORDERED: ONDANSETRON HCL INJ/PF 4 MG/2 ML SDV IV ONE (22:13)
[2016-12-13] MEDS ORDERED: OXYCODONE-ACETAMINOPHEN 5-325 MG TABLET PO ONE (22:13)
[2016-12-13 22:14] LABS: ABSOLUTE EOSINOPHILS # (AUTO) 0.1 10^3/uL (0.0-0.6); ALANINE AMINOTRANSFERASE 31 U/L (9-52); ALBUMIN 4.5 g/dL (3.5-5.0); ALKALINE PHOSPHATASE 145 U/L (38-126); ANION GAP 14 (5-19); ASPARTATE AMINO TRANSFERASE 12 U/L (14-36); BASOPHILS % (AUTO) 0.5 % (0-2); BILIRUBIN,DIRECT 0.3 mg/dL (0.0-0.4); BILIRUBIN,TOTAL 0.7 mg/dL (0.2-1.3); BLOOD UREA NITROGEN 5 mg/dL (7-20); CALCIUM 9.5 mg/dL (8.4-10.2); CARBON DIOXIDE 22 mmol/L (22-30); CHLORIDE 96 mmol/L (98-107); CREATINE KINASE 46 U/L (30-135); CREATININE RESULT 0.61 mg/dL (0.52-1.25); GLUCOSE 104 mg/dL (75-110); MEAN CORPUSCULAR HEMOGLOBIN 29.4 pg (27.0-33.4); MONOCYTES % (AUTO) 7.3 % (3-13); POTASSIUM 4.2 mmol/L (3.6-5.0); RED BLOOD COUNT 3.75 10^6/uL (3.72-5.28); SODIUM 131.9 mmol/L (137-145); TOTAL PROTEIN 7.5 g/dL (6.3-8.2)
[2016-12-13 22:19] LABS: ABSOLUTE MONOCYTES (AUTO) 0.5 10^3/uL (0.1-1.4); ABSOLUTE NEUT (AUTO) 4.8 10^3/uL (1.7-8.2); EOSINOPHILS % (AUTO) 0.9 % (0-6); HEMATOCRIT 31.6 % (36.0-47.0); HGB HCT DIFFERENCE 1.4; LYMPHOCYTES % (AUTO) 26.6 % (13-45); MEAN CORPUSCULAR HGB CONC 34.9 g/dL (32.0-36.0); MEAN CORPUSCULAR VOLUME 84 fl (80-97); RED CELL DISTRIBUTION WIDTH 14.6 % (11.5-14.0); SEGMENTED NEUTROPHILS % (AUTO) 64.7 % (42-78); WHITE BLOOD COUNT 7.5 10^3/uL (4.0-10.5)
[2016-12-13 22:26] LABS: CREATINE KINASE MB 0.23 ng/mL (<4.55)
[2016-12-13 22:27] LABS: TROPONIN I < 0.012 ng/mL
[2016-12-13] MEDS ORDERED: KETOROLAC TROMETHAMINE INJ/PF 30 MG/1 ML SDV IV ONE (23:21)
[2016-12-14 03:22] VITALS: BP 164/86
--- NOTE | 2016-12-14 09:20 | EKG REPORT ---
SEVERITY:- NORMAL ECG - SINUS RHYTHM : Confirmed by: Brenda Bowen MD 14-Dec-2016 09:20:11
== END 2016-12-14 03:30 | disposition home or self-care (01) ==
LOC: ER 19:16
DX: F41.9 Anxiety disorder, unspecified (principal); R07.9 Chest pain, unspecified; E03.9 Hypothyroidism, unspecified; I10 Essential (primary) hypertension; Z79.899 Other long term (current) drug therapy
CPT/HCPCS: 93005; 99285; 96374; 96375; 36415; 82553; 82550; 85025; 80053; 81001; 84484; 85379; 71010; 93010; J1885; A9270 ×2; J2405

== ENCOUNTER 2016-12-27 18:07 | Emergency (ER) | payer MEDICARE, BC ==
--- NOTE | 2016-12-27 19:11 | RADIOLOGY REPORT (SQ) ---
EXAM DESCRIPTION: CHEST SINGLE VIEW COMPLETED DATE/TIME: 12/27/2016 7:00 pm REASON FOR STUDY: Chest Pain COMPARISON: 12/13/2016 EXAM PARAMETERS: NUMBER OF VIEWS: One view. TECHNIQUE: Single frontal radiographic view of the chest acquired. RADIATION DOSE: NA LIMITATIONS: None. FINDINGS: LUNGS AND PLEURA: No opacities, masses or pneumothorax. No pleural effusion. MEDIASTINUM AND HILAR STRUCTURES: No masses. Contour normal. HEART AND VASCULAR STRUCTURES: Heart normal in size. Normal vasculature. BONES: No acute findings. HARDWARE: None in the chest. OTHER: No other significant finding. IMPRESSION: NO ACUTE RADIOGRAPHIC FINDING IN THE CHEST. TECHNICAL DOCUMENTATION: JOB ID: [id number] [employer]- All Rights Reserved
--- NOTE | 2016-12-27 19:28 | ER Document Report ---
ED Cardiac - General Chief Complaint: Chest Pressure Stated Complaint: CHEST PAIN Time Seen by Provider: 12/27/16 19:06 Notes: Patient is a 61-year-old female comes emergency department for chief complaint of an episode that happened at 6 PM where she felt her heart start to eat rapidly, she states she felt a tightening sensation in her chest and she felt lightheaded. This lasted for several minutes. After EMS arrived she was given 2 sublingual nitroglycerin and 324 mg of aspirin. She states her symptoms have resolved although now she has a mild headache. She denies back pain, abdominal pain, shortness of breath. She denies fever or cough. Patient denies any cardiac medical history, she had a stress test within the past 2 weeks after being recommended one when she had been evaluated by me recently in the emergency department for chest pain. Past medical history of hypothyroidism and hypertension, she states she recently had a thyroid panel performed and it was normal. TRAVEL OUTSIDE OF THE [place] IN LAST 30 DAYS: No - Related Data Allergies/Adverse Reactions: Sulfa (Sulfonamide Antibiotics) Allergy (Severe, Verified 12/04/16 16:45) rash morphine [Morphine] Allergy (Intermediate, Verified 12/04/16 16:45) Hives Past Medical History - General Information source: Patient - Social History Smoking Status: Never Smoker Chew tobacco use (# tins/day): No Frequency of alcohol use: None Drug Abuse: None Lives with: Family Family History: CVA, Hyperlipidemia, Hypertension, Malignancy, Thyroid Disfunction - Past Medical History Cardiac Medical History: Reports: Hx Hypercholesterolemia, Hx Hypertension Pulmonary Medical History: Reports: Hx Asthma Neurological Medical History: Reports: Hx Migraine Endocrine Medical History: Reports: Hx Hypothyroidism Renal/ Medical History: Reports: Hx Kidney Stones. 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, Reports Hx Fibromyalgia, Reports Hx Musculoskeletal Trauma Traumatic Medical History: Reports: Hx Fractures - left wrist Past Surgical History: Reports: Hx Appendectomy, Hx Cardiac Catheterization, Hx Cholecystectomy, Hx Genitourinary Surgery - Bladder surgery annually, Hx Tonsillectomy - Immunizations Immunizations up to date: Yes Hx Diphtheria, Pertussis, Tetanus Vaccination: Yes - 2009 Hx Pneumococcal Vaccination: 02/24/00 Review of Systems - Review of Systems Constitutional: No symptoms reported EENT: No symptoms reported Cardiovascular: No symptoms reported Respiratory: No symptoms reported Gastrointestinal: No symptoms reported Genitourinary: No symptoms reported Female Genitourinary: No symptoms reported Musculoskeletal: No symptoms reported Skin: No symptoms reported Hematologic/Lymphatic: No symptoms reported Neurological/Psychological: No symptoms reported Physical Exam - Vital signs Vitals: Resp Pulse Ox 17 100 12/27/16 18:14 12/27/16 18:14 Course - Vital Signs Vital signs: Temp Pulse Resp BP Pulse Ox 98.3 F 15 163/89 H 99 12/27/16 18:22 12/28/16 01:23 EDT 12/27/16 22:37 12/28/16 01:23 EDT - Laboratory Result Diagrams: 12/27/16 19:30 12/27/16 19:30 Laboratory results interpreted by me: 12/27/16 12/27/16 12/27/16 19:30 19:30 20:05 RDW 14.3 H Sodium 132.9 L Chloride 96 L BUN 5 L AST 10 L Alkaline Phosphatase 130 H Urine Blood MODERATE H Ur Leukocyte Esterase TRACE H Discharge - Discharge Clinical Impression: Tachycardia, Chest pressure Condition: Stable Disposition: HOME, SELF-CARE Additional Instructions: No arrhythmia was identified during your monitoring here tonight. Your heart and lung workup at this time was normal. Continue metoprolol, avoid caffeine, stay hydrated. Take the Lorazepam given last time if needed for your symptoms. Please call cardiology on Thursday to perform close follow-up for additional testing including possible Holter monitoring or similar tests (either call listed referral or the one you just saw ). Return to the emergency department for any concerning symptoms including passing out, difficulty breathing, or any other concerning symptoms. Referrals: NINFA GARCIA MD [Primary Care Provider] - Follow up as needed MITCHELL TODD MD [EMERITUS] - Follow up as needed YOSEF OSCAR MD [ACTIVE STAFF] - Follow up as needed ABBI NEWBERRY MD [ACTIVE STAFF] - Follow up as needed
[2016-12-27 19:44] LABS: ABSOLUTE BASOPHILS # (AUTO) 0.1 10^3/uL (0.0-0.2); ABSOLUTE EOSINOPHILS # (AUTO) 0.2 10^3/uL (0.0-0.6); ABSOLUTE LYMPHOCYTES (AUTO) 1.9 10^3/uL (0.5-4.7); ABSOLUTE MONOCYTES (AUTO) 0.7 10^3/uL (0.1-1.4); BASOPHILS % (AUTO) 0.7 % (0-2); EOSINOPHILS % (AUTO) 2.5 % (0-6); HEMATOCRIT 36.2 % (36.0-47.0); HEMOGLOBIN 12.3 g/dL (12.0-15.5); LYMPHOCYTES % (AUTO) 28.4 % (13-45); MEAN CORPUSCULAR HEMOGLOBIN 28.8 pg (27.0-33.4); MEAN CORPUSCULAR HGB CONC 34.1 g/dL (32.0-36.0); MEAN CORPUSCULAR VOLUME 85 fl (80-97); MONOCYTES % (AUTO) 9.6 % (3-13); PLATELET COUNT 298 10^3/uL (150-450); RED BLOOD COUNT 4.28 10^6/uL (3.72-5.28); RED CELL DISTRIBUTION WIDTH 14.3 % (11.5-14.0); SEGMENTED NEUTROPHILS % (AUTO) 58.8 % (42-78); TOTAL CELLS COUNTED % (AUTO) 100 %; WHITE BLOOD COUNT 6.8 10^3/uL (4.0-10.5)
[2016-12-27 19:54] LABS: ALANINE AMINOTRANSFERASE 28 U/L (9-52); ALBUMIN 4.2 g/dL (3.5-5.0); ALKALINE PHOSPHATASE 130 U/L (38-126); ANION GAP 12 (5-19); ASPARTATE AMINO TRANSFERASE 10 U/L (14-36); BILIRUBIN,DIRECT 0.3 mg/dL (0.0-0.4); BILIRUBIN,TOTAL 0.4 mg/dL (0.2-1.3); BLOOD UREA NITROGEN 5 mg/dL (7-20); CALCIUM 9.3 mg/dL (8.4-10.2); CARBON DIOXIDE 25 mmol/L (22-30); CHLORIDE 96 mmol/L (98-107); CREATINE KINASE 36 U/L (30-135); GLUCOSE 95 mg/dL (75-110); MAGNESIUM 1.9 mg/dL (1.6-2.3); POTASSIUM 3.8 mmol/L (3.6-5.0); SODIUM 132.9 mmol/L (137-145)
[2016-12-27 20:14] LABS: CREATINE KINASE MB < 0.22 ng/mL (<4.55); TROPONIN I < 0.012 ng/mL
[2016-12-27 20:39] LABS: APPEARANCE,URINE CLEAR; BILIRUBIN,URINE NEGATIVE (NEGATIVE); COLOR,URINE COLORLESS; GLUCOSE, URINE NEGATIVE (NEGATIVE); KETONES,URINE NEGATIVE (NEGATIVE); LEUKOCYTE ESTERASE,URINE TRACE (NEGATIVE); NITRITE,URINE NEGATIVE (NEGATIVE); PROTEIN,URINE NEGATIVE (NEGATIVE); URINE SPECIFIC GRAVITY 1.001; UROBILINOGEN,URINE NEGATIVE mg/dL (<2.0)
[2016-12-27] MEDS ORDERED: ONDANSETRON HCL INJ/PF 4 MG/2 ML SDV IV ONE (21:48)
[2016-12-27] MEDS ORDERED: OXYCODONE-ACETAMINOPHEN 5-325 MG TABLET PO ONE (21:48)
[2016-12-27 22:31] LABS: URINE AMPHETAMINES SCREEN NEGATIVE; URINE BARBITURATES SCREEN NEGATIVE; URINE BENZODIAZEPINES SCREEN NEGATIVE; URINE COCAINE SCREEN NEGATIVE; URINE MARIJUANA (THC) SCREEN NEGATIVE; URINE METHADONE SCREEN NEGATIVE; URINE PHENCYCLIDINE SCREEN NEGATIVE
[2016-12-27] MEDS ORDERED: LORAZEPAM 1 MG TABLET PO ONE (23:44)
[2016-12-28 01:24] VITALS: BP 163/89
--- NOTE | 2016-12-28 15:04 | EKG REPORT ---
SEVERITY:- NORMAL ECG - SINUS RHYTHM : Confirmed by: Yolanda Greenfield 28-Dec-2016 15:03:14
--- NOTE | 2017-03-13 20:20 | ER Document Report ---
ED Cardiac - General Chief Complaint: Chest Pressure Stated Complaint: CHEST PAIN Time Seen by Provider: 12/27/16 19:06 Notes: Patient is a 61-year-old female comes to the emergency department for chief complaint of an episode that happened at 6 PM where she felt her heart start to beat rapidly, she states she felt a tightening sensation in her chest and she felt lightheaded. This lasted for several minutes and then resolved. After EMS arrived she was given 2 sublingual nitroglycerin and 324 mg of aspirin. She states her symptoms have resolved although now she has a mild headache. She denies back pain, abdominal pain, shortness of breath. She denies fever or cough. Patient denies any cardiac medical history, she had a stress test within the past 2 weeks after being recommended one when she had an evaluation by me recently in the emergency department for chest pain. Past medical history of hypothyroidism and hypertension, states she recently had a thyroid panel performed and it was normal. TRAVEL OUTSIDE OF THE [place] IN LAST 30 DAYS: No - Related Data Allergies/Adverse Reactions: Sulfa (Sulfonamide Antibiotics) Allergy (Severe, Verified 12/04/16 16:45) rash morphine [Morphine] Allergy (Intermediate, Verified 12/04/16 16:45) Hives Past Medical History - General Information source: Patient - Social History Smoking Status: Never Smoker Chew tobacco use (# tins/day): No Frequency of alcohol use: None Drug Abuse: None Lives with: Family Family History: CVA, Hyperlipidemia, Hypertension, Malignancy, Thyroid Disfunction - Past Medical History Cardiac Medical History: Reports: Hx Hypercholesterolemia, Hx Hypertension Pulmonary Medical History: Reports: Hx Asthma Neurological Medical History: Reports: Hx Migraine Endocrine Medical History: Reports: Hx Hypothyroidism Renal/ Medical History: Reports: Hx Kidney Stones. 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, Reports Hx Fibromyalgia, Reports Hx Musculoskeletal Trauma Traumatic Medical History: Reports: Hx Fractures - left wrist Past Surgical History: Reports: Hx Appendectomy, Hx Cardiac Catheterization, Hx Cholecystectomy, Hx Genitourinary Surgery - Bladder surgery annually, Hx Tonsillectomy - Immunizations Immunizations up to date: Yes Hx Diphtheria, Pertussis, Tetanus Vaccination: Yes - 2009 Hx Pneumococcal Vaccination: 02/24/00 Review of Systems - Review of Systems Constitutional: No symptoms reported EENT: No symptoms reported Cardiovascular: See HPI Respiratory: No symptoms reported Gastrointestinal: No symptoms reported Genitourinary: No symptoms reported Female Genitourinary: No symptoms reported Musculoskeletal: No symptoms reported Skin: No symptoms reported Hematologic/Lymphatic: No symptoms reported Neurological/Psychological: No symptoms reported Physical Exam - Vital signs Vitals: Resp Pulse Ox 17 100 12/27/16 18:14 12/27/16 18:14 Interpretation: Normal - General General appearance: Alert In distress: None - HEENT Head: Normocephalic, Atraumatic Eyes: Normal Pupils: PERRL - Respiratory Respiratory status: No respiratory distress Chest status: Nontender Breath sounds: Normal Chest palpation: Normal - Cardiovascular Rhythm: Regular. No: Tachycardia Heart sounds: Normal auscultation, S1 appreciated, S2 appreciated Murmur: No - Abdominal Inspection: Normal Distension: No distension Bowel sounds: Normal Tenderness: Nontender Organomegaly: No organomegaly - Back Back: Normal, Nontender - Extremities General upper extremity: Normal inspection, Nontender, Normal color, Normal ROM , Normal temperature General lower extremity: Normal inspection, Nontender, Normal color, Normal ROM , Normal temperature, Normal weight bearing. No: Cece's sign - Neurological Neuro grossly intact: Yes Cognition: Normal Orientation: AAOx4 [place] Coma Scale Eye Opening: Spontaneous [place] Coma Scale Verbal: Oriented [place] Coma Scale Motor: Obeys Commands [place] Coma Scale Total: 15 Speech: Normal Motor strength normal: LUE, RUE, LLE, RLE Sensory: Normal - Psychological Associated symptoms: Normal affect, Normal mood, Anxious - anxious and apologetic, but cooperative and directable - Skin Skin Temperature: Warm Skin Moisture: Dry Skin Color: Normal Course - Re-evaluation Re-evalutation: 2 sets of negative troponins, d-dimer negative, EKG with no significant change from prior, no return of symptoms, no decompensation during monitoring. Recent negative stress test. Patient had initial anxiety and this resolved with ativan. Patient stating she is ready to leave. Discussed all details with patient, discussed close follow-up recommendations, home recommendations, return precautions. - Vital Signs Vital signs: Temp Pulse Resp BP Pulse Ox 98.3 F 15 163/89 H 99 12/27/16 18:22 12/28/16 01:23 EDT 12/27/16 22:37 12/28/16 01:23 EDT - Laboratory Result Diagrams: 12/27/16 19:30 12/27/16 19:30 Laboratory results interpreted by me: 12/27/16 12/27/16 12/27/16 19:30 19:30 20:05 RDW 14.3 H Sodium 132.9 L Chloride 96 L BUN 5 L AST 10 L Alkaline Phosphatase 130 H Urine Blood MODERATE H Ur Leukocyte Esterase TRACE H Discharge - Discharge Clinical Impression: Tachycardia, Chest pressure Condition: Stable Disposition: HOME, SELF-CARE Additional Instructions: No arrhythmia was identified during your monitoring here tonight. Your heart and lung workup at this time were normal. Continue metoprolol, avoid caffeine, stay hydrated. Take the Lorazepam given last time if needed for your symptoms. Please call cardiology on Thursday to perform close follow-up for additional testing including possible Holter monitoring or similar tests (either call listed referral or the one you just saw ). Return to the emergency department for any concerning symptoms including passing out, difficulty breathing, or any other concerning symptoms. Referrals: ABBI NEWBERRY MD [ACTIVE STAFF] - Follow up as needed YOSEF OSCAR MD [ACTIVE STAFF] - Follow up as needed NINFA GARCIA MD [Primary Care Provider] - Follow up as needed MITCHELL TODD MD [EMERITUS] - Follow up as needed
== END 2016-12-28 01:40 | disposition home or self-care (01) ==
LOC: ER 18:07
DX: R00.0 Tachycardia, unspecified (principal); R07.9 Chest pain, unspecified; F41.9 Anxiety disorder, unspecified; K21.0 Gastro-esophageal reflux disease with esophagitis; I10 Essential (primary) hypertension; E03.9 Hypothyroidism, unspecified; E78.00 Pure hypercholesterolemia, unspecified; Z87.442 Personal history of urinary calculi; Z90.49 Acquired absence of other specified parts of digestive tract; Z88.2 Allergy status to sulfonamides; Z88.6 Allergy status to analgesic agent
CPT/HCPCS: 93005; 99285; 96374; 36415; 82553; 82550; 83735; 85025; 80053; 81001; 84484; 80307; 85379; 71010; 93010; A9270 ×2; J2405

== ENCOUNTER 2017-01-25 20:01 | Observation (INO) | payer MEDICARE, BC ==
[2017-01-25 20:52] LABS: ABSOLUTE EOSINOPHILS # (AUTO) 0.2 10^3/uL (0.0-0.6); ABSOLUTE LYMPHOCYTES (AUTO) 1.4 10^3/uL (0.5-4.7); ABSOLUTE MONOCYTES (AUTO) 0.6 10^3/uL (0.1-1.4); ABSOLUTE NEUT (AUTO) 4.8 10^3/uL (1.7-8.2); BASOPHILS % (AUTO) 0.6 % (0-2); EOSINOPHILS % (AUTO) 2.9 % (0-6); HEMATOCRIT 30.5 % (36.0-47.0); HEMOGLOBIN 10.4 g/dL (12.0-15.5); HGB HCT DIFFERENCE 0.7; LYMPHOCYTES % (AUTO) 19.4 % (13-45); MEAN CORPUSCULAR HEMOGLOBIN 29.3 pg (27.0-33.4); MEAN CORPUSCULAR HGB CONC 34.3 g/dL (32.0-36.0); MEAN CORPUSCULAR VOLUME 86 fl (80-97); MONOCYTES % (AUTO) 8.3 % (3-13); RED BLOOD COUNT 3.56 10^6/uL (3.72-5.28); RED CELL DISTRIBUTION WIDTH 14.5 % (11.5-14.0); SEGMENTED NEUTROPHILS % (AUTO) 68.8 % (42-78)
[2017-01-25 21:12] LABS: ALANINE AMINOTRANSFERASE 33 U/L (9-52); ALBUMIN 4.3 g/dL (3.5-5.0); ALKALINE PHOSPHATASE 131 U/L (38-126); ANION GAP 14 (5-19); ASPARTATE AMINO TRANSFERASE 14 U/L (14-36); BILIRUBIN,DIRECT 0.3 mg/dL (0.0-0.4); BILIRUBIN,TOTAL 0.3 mg/dL (0.2-1.3); BLOOD UREA NITROGEN 7 mg/dL (7-20); CALCIUM 9.3 mg/dL (8.4-10.2); CARBON DIOXIDE 22 mmol/L (22-30); CHLORIDE 98 mmol/L (98-107); CREATINE KINASE 71 U/L (30-135); CREATININE RESULT 0.75 mg/dL (0.52-1.25); GLUCOSE 101 mg/dL (75-110); POTASSIUM 4.2 mmol/L (3.6-5.0); SODIUM 134.1 mmol/L (137-145)
[2017-01-25 21:30] LABS: CREATINE KINASE MB 0.57 ng/mL (<4.55)
[2017-01-25 21:36] LABS: TROPONIN I < 0.012 ng/mL
[2017-01-25] MEDS ORDERED: NITROGLYCERIN 0.4 MG/TAB 25 TAB/BOTTLE SL PRN (21:45)
[2017-01-25] MEDS ORDERED: METOPROLOL TARTRATE PF/INJ 5 MG/5 ML SDV IV ONE (21:45)
--- NOTE | 2017-01-25 21:51 | EKG REPORT ---
SEVERITY:- NORMAL ECG - SINUS RHYTHM : Confirmed by: Ashkan Mcclelland MD 25-Jan-2017 21:50:58
--- NOTE | 2017-01-25 21:53 | ER Document Report ---
ED Cardiac - General Chief Complaint: Chest Pain Stated Complaint: CHEST PAIN Time Seen by Provider: 01/25/17 20:25 Mode of Arrival: Ambulatory Information source: Patient TRAVEL OUTSIDE OF THE [place] IN LAST 30 DAYS: No - HPI Patient complains to provider of: Chest tightness, Shortness of breath Use of: denies: Alcohol, Amphetamines, Bath salts, Caffeine, Cocaine, Decongestants, Other Was the onset of pain: Gradual Is the pain a: New problem Chest pain location: Substernal Quality of pain: Pressure Chest pain radiation location: None Severity now: Moderate Severity at worst: Moderate Chest pain precipitating factors: Physical Exertion Cardiac risk factors: Hypertension Positive cardiac history: No Associated symptoms: Shortness of breath Exacerbated by: Activity Relieved by: NTG Similar symptoms previously: No Recently seen / treated by doctor: Yes - taken off metoprolol thursday Notes: 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 She states she developed chest pressure earlier today however she put it off because she was trying to get her decorating done. Patient states when he began to feel like an elephant on her chest she decided to have it evaluated. She does state that the nitro that was given underneath her tongue helped for short period of time but then the pressure returns. - Related Data Allergies/Adverse Reactions: Sulfa (Sulfonamide Antibiotics) Allergy (Severe, Verified 12/04/16 16:45) rash morphine [Morphine] Allergy (Intermediate, Verified 12/04/16 16:45) Hives Past Medical History - General Information source: Patient - negative stress test - Social History Smoking Status: Never Smoker Chew tobacco use (# tins/day): No Frequency of alcohol use: None Drug Abuse: None Lives with: Family Family History: CVA, Hyperlipidemia, Hypertension, Malignancy, Thyroid Disfunction Patient has suicidal ideation: No Patient has homicidal ideation: No - Past Medical History Cardiac Medical History: Reports: Hx Hypercholesterolemia, Hx Hypertension Pulmonary Medical History: Reports: Hx Asthma Neurological Medical History: Reports: Hx Migraine Endocrine Medical History: Reports: Hx Hypothyroidism Renal/ Medical History: Reports: Hx Kidney Stones. 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, Reports Hx Fibromyalgia, Reports Hx Musculoskeletal Trauma Psychiatric Medical History: Reports: None Traumatic Medical History: Reports: Hx Fractures - left wrist Past Surgical History: Reports: Hx Appendectomy, Hx Cardiac Catheterization, Hx Cholecystectomy, Hx Genitourinary Surgery - Bladder surgery annually, Hx Tonsillectomy - Immunizations Immunizations up to date: Yes Hx Diphtheria, Pertussis, Tetanus Vaccination: Yes - 2009 Hx Pneumococcal Vaccination: 02/24/00 Review of Systems - Review of Systems Constitutional: No symptoms reported EENT: No symptoms reported Cardiovascular: See HPI Respiratory: See HPI Gastrointestinal: Diarrhea - yesterday after eating left overs-took immodium Genitourinary: No symptoms reported Musculoskeletal: No symptoms reported Skin: No symptoms reported Hematologic/Lymphatic: No symptoms reported Neurological/Psychological: No symptoms reported Physical Exam - Vital signs Vitals: Pulse Ox 100 01/25/17 20:11 - Notes Notes: PHYSICAL EXAMINATION: GENERAL: Patient is a petite female who appears uncomfortable HEAD: Atraumatic, normocephalic. EYES: Pupils equal round and reactive to light, extraocular movements intact, conjunctiva are normal. ENT: Nares patent, oropharynx clear without exudates. Moist mucous membranes. NECK: Normal range of motion, supple without lymphadenopathy LUNGS: Breath sounds clear to auscultation bilaterally and equal. No wheezes rales or rhonchi. HEART: Regular rate and rhythm without murmurs ABDOMEN: Soft, nontender, nondistended abdomen. No guarding, no rebound. No masses appreciated. Female : deferred Musculoskeletal: Normal range of motion, no pitting or edema. No cyanosis. NEUROLOGICAL: Cranial nerves grossly intact. Normal speech, normal gait. Normal sensory, motor exams PSYCH: Normal mood, normal affect. SKIN: Warm, Dry, normal turgor, no rashes or lesions noted. Course - Vital Signs Vital signs: Temp Pulse Resp BP Pulse Ox 98.3 F 86 19 133/68 H 99 01/25/17 20:14 01/25/17 20:14 01/25/17 22:53 01/25/17 22:53 01/25/17 22:53 - Laboratory Result Diagrams: 01/25/17 20:20 01/25/17 20:20 Laboratory results interpreted by me: 01/25/17 01/25/17 20:20 20:20 RBC 3.56 L Hgb 10.4 L Hct 30.5 L RDW 14.5 H Sodium 134.1 L Alkaline Phosphatase 131 H 01/25/17 23:47 trop <0.012 - Diagnostic Test Radiology results interpreted by me: 01/25/17 23:43 no acute - EKG Interpretation by Me EKG shows normal: Sinus rhythm Rate: Normal Discharge - Discharge Clinical Impression: Chest pain Disposition: ADMITTED OBSERVATION Admitting Provider: Hospitalist Unit Admitted: Telemetry - [place] Referrals: NINFA GARCIA MD [Primary Care Provider] - Follow up as needed
--- NOTE | 2017-01-25 22:04 | RADIOLOGY REPORT (SQ) ---
EXAM DESCRIPTION: CHEST SINGLE VIEW COMPLETED DATE/TIME: 01/25/2017 9:29 pm REASON FOR STUDY: CP COMPARISON: 12/27/2016 EXAM PARAMETERS: NUMBER OF VIEWS: One view. TECHNIQUE: Single frontal radiographic view of the chest acquired. RADIATION DOSE: NA LIMITATIONS: None. FINDINGS: LUNGS AND PLEURA: No opacities, masses or pneumothorax. No pleural effusion. MEDIASTINUM AND HILAR STRUCTURES: No masses. Contour normal. HEART AND VASCULAR STRUCTURES: Heart normal in size. Normal vasculature. BONES: No acute findings. HARDWARE: None in the chest. OTHER: No other significant finding. IMPRESSION: NO ACUTE RADIOGRAPHIC FINDING IN THE CHEST. TECHNICAL DOCUMENTATION: JOB ID: [id number] [employer]- All Rights Reserved
[2017-01-26] MEDS ORDERED: DIAZEPAM 5 MG TABLET PO PRN (00:13)
[2017-01-26] MEDS ORDERED: LANSOPRAZOLE 15 MG TAB.RAP.DR PO ONE (00:13)
[2017-01-26] MEDS ORDERED: ONDANSETRON HCL INJ/PF 4 MG/2 ML SDV IV PRN (00:13)
[2017-01-26] MEDS ORDERED: NITROGLYCERIN 0.4 MG/TAB 25 TAB/BOTTLE SL PRN (00:13)
[2017-01-26 01:00] LABS: CREATINE KINASE MB 0.57 ng/mL (<4.55)
[2017-01-26 01:15] LABS: TROPONIN I < 0.012 ng/mL
[2017-01-26] MEDS ORDERED: TRAZODONE HCL 50 MG TABLET PO PRN (01:24)
[2017-01-26] MEDS ORDERED: METOCLOPRAMIDE HCL ORAL SOLN 10 MG/10 ML UDCUP PO ONE (01:33)
[2017-01-26] MEDS ORDERED: LIDOCAINE 2% VISCOUS SOLN 20 ML UDCUP PO ONE (01:33)
[2017-01-26] MEDS ORDERED: MAG HYDROX/AL HYDROX/SIMETH SUSP 30 ML UDCUP PO ONE (01:33)
--- NOTE | 2017-01-26 01:40 | PDOC H&P ---
History of Present Illness Admission Date/PCP: 01/26/17 00:07 NINFA GARCIA MD History of Present Illness: WILMAR GOLDEN is a 61 year old female hypothyroidism, hypertension, generalized anxiety disorder who presents to the emergency department with complaints of chest pain. Patient reports that she was decorating for [place] going up and down the stairs with boxes when she developed some left upper chest heaviness. This did not radiate. It was associated with shortness of breath, but no nausea or vomiting or diaphoresis. Patient reports she had diarrhea on Thursday as well as her having diarrhea on Thursday. She admits to chills without fever and a dry nonproductive cough. Patient reports that her primary care physician discontinued her Toprol on Thursday and started her on losartan she believes. She does also complain of indigestion. She is referred to the hospital service for evaluation of her chest pain. Patient's medications are currently undergoing reconciliation. Current list is automatically generated by [employer] and does not reflect an accurate description of her medications. Due to the urgent/emergent nature of her condition, she is admitted without a full list. Past Medical History Cardiac Medical History: Reports: Hyperlipidema, Hypertension Pulmonary Medical History: Reports: Asthma Neurological Medical History: Reports: Migraine Endocrine Medical History: Reports: Hypothyroidism GI Medical History: Reports: Gastroesophageal Reflux Disease Musculoskeltal Medical History: Reports: Arthritis - DJD of back, Fibromyalgia Psychiatric Medical History: Reports: None Hematology: Reports: Anemia - on iron Past Surgical History Past Surgical History: Reports: Appendectomy, Cardiac Catheterization, Cholecystectomy, Tonsillectomy Social History Lives with: Family Smoking Status: Never Smoker Frequency of Alcohol Use: None Hx Recreational Drug Use: No Hx Prescription Drug Abuse: No - Advance Directive Resuscitation Status: Full Code Surrogate healthcare decision maker:: Mukul, Family History Family History: CVA, Hyperlipidemia, Hypertension, Malignancy, Thyroid Disfunction Parental Family History Reviewed: Yes Children Family History Reviewed: Yes Sibling(s) Family History Reviewed.: Yes Medication/Allergy Home Medications: Levothyroxine Sodium [Synthroid 0.05 mg Tablet] 50 mcg PO DAILY 07/01/15 Metoprolol Succinate [Toprol Xl] 100 mg PO BID 07/01/15 Trazodone HCl 100 mg PO QHS PRN 07/01/15 Zolpidem Tartrate [Ambien CR 6.25 mg Tablet] 12.5 mg PO QHS PRN 07/01/15 Lorazepam [Ativan 1 mg Tablet] 1 mg PO Q4 PRN #10 tab 12/14/16 Allergies/Adverse Reactions: Sulfa (Sulfonamide Antibiotics) Allergy (Severe, Verified 12/04/16 16:45) rash morphine [Morphine] Allergy (Intermediate, Verified 12/04/16 16:45) Hives Review of Systems Constitutional: PRESENT: chills. ABSENT: fever(s), headache(s), weakness, weight gain, weight loss Eyes: ABSENT: visual disturbances Ears: ABSENT: hearing changes Cardiovascular: PRESENT: chest pain. ABSENT: dyspnea on exertion, edema, orthropnea, palpitations Respiratory: PRESENT: cough. ABSENT: dyspnea, hemoptysis, sputum Gastrointestinal: PRESENT: diarrhea, heartburn. ABSENT: abdominal pain, constipation, hematemesis, hematochezia, melena, nausea, vomiting Genitourinary: ABSENT: dysuria, hematuria Musculoskeletal: ABSENT: joint swelling Integumentary: ABSENT: rash, wounds Neurological: ABSENT: abnormal gait, abnormal speech, confusion, dizziness, focal weakness, syncope Psychiatric: ABSENT: anxiety, depression, homidical ideation, suicidal ideation Endocrine: ABSENT: cold intolerance, heat intolerance, polydipsia, polyuria Hematologic/Lymphatic: ABSENT: easy bleeding, easy bruising Physical Exam Vital Signs: Temp Pulse Resp BP Pulse Ox 98.3 F 86 19 133/74 H 100 01/25/17 20:14 01/25/17 20:14 01/25/17 23:01 01/25/17 23:01 01/25/17 23:01 General appearance: PRESENT: no acute distress, well-developed, well-nourished Head exam: PRESENT: atraumatic, normocephalic Eye exam: PRESENT: conjunctiva pink, EOMI, PERRLA. ABSENT: scleral icterus Ear exam: PRESENT: normal external ear exam Mouth exam: PRESENT: moist, tongue midline Neck exam: ABSENT: carotid bruit, JVD, lymphadenopathy, thyromegaly Respiratory exam: PRESENT: clear to auscultation moses. ABSENT: rales, rhonchi, wheezes Cardiovascular exam: PRESENT: RRR. ABSENT: diastolic murmur, rubs, systolic murmur Pulses: PRESENT: normal dorsalis pedis pul Vascular exam: PRESENT: normal capillary refill GI/Abdominal exam: PRESENT: normal bowel sounds, soft. ABSENT: distended, guarding, mass, organolmegaly, rebound, tenderness Rectal exam: PRESENT: deferred Extremities exam: PRESENT: full ROM. ABSENT: calf tenderness, clubbing, pedal edema Neurological exam: PRESENT: alert, awake, oriented to person, oriented to place , oriented to time, oriented to situation, CN II-XII grossly intact. ABSENT: motor sensory deficit Psychiatric exam: PRESENT: appropriate affect, normal mood. ABSENT: homicidal ideation, suicidal ideation Skin exam: PRESENT: dry, intact, warm. ABSENT: cyanosis, rash Results Laboratory Results: 01/26/17 01/26/17 00:08 00:08 CK-MB (CK-2) 0.57 Troponin I Cancelled < 0.012 Impressions: Chest X-Ray 01/25/17 20:38 IMPRESSION: NO ACUTE RADIOGRAPHIC FINDING IN THE CHEST. Status: Imported from PACS Assessment & Plan - Diagnosis (1) Chest pain Qualifiers: Chest pain type: precordial pain Qualified Code(s): R07.2 - Precordial pain Is this a current diagnosis for this admission?: Yes Plan: Place patient on telemetry observation. Monitor for arrhythmia or ST segment changes. Initiate patient on metoprolol, Lipitor, oxygen, nitroglycerin, and aspirin. Serial cardiac enzymes every 6 hours. Testing lipid panel in the morning. Will obtain stress test tomorrow due to patient's risk factors and concerning history of chest pain. (2) Hypertension Is this a current diagnosis for this admission?: Yes (3) Hypothyroid Qualifiers: Hypothyroidism type: unspecified Qualified Code(s): E03.9 - Hypothyroidism , unspecified Is this a current diagnosis for this admission?: Yes Plan: Check TSH (4) Interstitial cystitis Is this a current diagnosis for this admission?: Yes (5) DVT prophylaxis Is this a current diagnosis for this admission?: Yes - Time Time Spent: 30 to 50 Minutes Medications reviewed and adjusted accordingly: Yes Anticipated discharge: Home Within: within 24 hours - Inpatient Certification Based on my medical assessment, after consideration of the patient's comorbidities, presenting symptoms, or acuity I expect that the services needed warrant INPATIENT care.: No I certify that my determination is in accordance with my understanding of Medicare's requirements for reasonable and necessary INPATIENT services [42 CFR 412.3e].: No Post Hospital Care: D/C Financial Coordinator Documentation
[2017-01-26] MEDS ORDERED: ZOLPIDEM TARTRATE 5 MG TABLET PO ONE (02:00)
[2017-01-26 06:40] LABS: CREATINE KINASE MB 0.31 ng/mL (<4.55)
[2017-01-26 06:42] LABS: TROPONIN I < 0.012 ng/mL
[2017-01-26] MEDS: ACETAMINOPHEN 325 MG TABLET PO PRN ×2 (09:40→13:58)
[2017-01-26] MEDS: ASPIRIN 325 MG TABLET, ENT COATED PO SCH (10:13)
[2017-01-26] MEDS: LEVOTHYROXINE SODIUM 0.05 MG TABLET PO SCH (10:13)
[2017-01-26] MEDS: METOPROLOL SUCCINATE 25 MG TAB.SR.24H PO SCH ×2 (10:14→21:39)
[2017-01-26] MEDS: LOSARTAN POTASSIUM 25 MG TABLET PO SCH ×2 (10:14→10:22)
[2017-01-26] MEDS ORDERED: INFLUENZA ADLT QUAD (36MOS+) 2017-18 VAC 0.5 ML SYR IM PRN (10:17)
--- NOTE | 2017-01-26 12:06 | PDOC PROGRESS REPORT ---
Subjective Progress Note for:: 01/26/17 Subjective:: There is a follow-up visit for chest pain. Spoke with the patient's nurse taking care of her. The nurse tells me that she spoke with the patient's who states that his has a habit of coming in through the emergency room. He states that EMS is come out to their house to warn them that if his continue to call EMS needlessly that they could possibly be arrested. He also told the nurse that his is learning to change her symptoms to chest pain in order to convince EMS to bring her into the hospital. He told the nurse that her last stress test was normal and that it was 2 weeks ago in [place]. Patient denies this. She is reported her last stress test to be in October. At any rate there are no records in our system of any stress test. Reason For Visit: CHEST PAIN Physical Exam Vital Signs: Temp Pulse Resp BP Pulse Ox 98.3 F 86 19 119/72 98 01/25/17 20:14 01/25/17 20:14 01/26/17 10:52 01/26/17 10:01 01/26/17 10:52 GENERAL: This is a well-developed well-nourished appearing white female resting in bed currently in no acute distress. HEART: Regular rate and rhythm. No murmurs, rubs or gallops. LUNGS: Clear to auscultation bilaterally with equal rise and fall of the chest. ABDOMEN: Soft, nontender, nondistended with normoactive bowel sounds EXTREMETIES: No clubbing, cyanosis or edema. 2+ peripheral pulses bilaterally. NEURO: Awake, alert and oriented 3. Cranial nerves II through XII are grossly intact. Results Laboratory Results: 01/26/17 01/26/17 01/26/17 00:08 00:08 06:00 CK-MB (CK-2) 0.57 0.31 Troponin I Cancelled < 0.012 < 0.012 Impressions: Chest X-Ray 01/25/17 20:38 IMPRESSION: NO ACUTE RADIOGRAPHIC FINDING IN THE CHEST. Assessment & Plan - Diagnosis (1) Chest pain Qualifiers: Chest pain type: precordial pain Qualified Code(s): R07.2 - Precordial pain Is this a current diagnosis for this admission?: Yes Plan: Stress test has not yet been ordered. Will place the order for this. It will likely not happen until tomorrow. Currently the patient is not experiencing any significant chest discomfort. Although, she states that she does not feel quite right. She states that she usually can run 3 miles and will feel like this. Troponins have been negative. Patient denies a history of GERD or anxiety/panic attacks. (2) Hypertension Is this a current diagnosis for this admission?: Yes Plan: Losartan and metoprolol have been ordered overnight. With the patient getting ready for stress test her metoprolol will likely have to be held. (3) Hypothyroid Qualifiers: Hypothyroidism type: unspecified Qualified Code(s): E03.9 - Hypothyroidism , unspecified Is this a current diagnosis for this admission?: Yes Plan: Continue Synthroid. - Time Time Spent with patient: 15-24 minutes - Inpatient Certification Medical Necessity: Need Close Monitoring Due to Risk of Patient Decompensation
[2017-01-26] MEDS: LORAZEPAM 1 MG TABLET PO PRN (12:14)
[2017-01-26 14:16] LABS: CREATINE KINASE MB < 0.22 ng/mL (<4.55); TROPONIN I < 0.012 ng/mL
[2017-01-26] MEDS ORDERED: ATORVASTATIN CALCIUM 40 MG TABLET PO SCH (22:00)
[2017-01-26] MEDS ORDERED: ZOLPIDEM TARTRATE 5 MG TABLET PO SCH (22:00)
[2017-01-27 05:02] LABS: CHOLESTEROL 172.27 mg/dL (0-200); CREATINE KINASE 39 U/L (30-135); Direct HDL 76 mg/dL (>40); TRIGLYCERIDES 56 mg/dL (<150)
[2017-01-27 05:13] LABS: DIRECT LDL 70 mg/dL (<100)
[2017-01-27] MEDS: ACETAMINOPHEN 325 MG TABLET PO PRN (08:13)
[2017-01-27] MEDS: METOPROLOL SUCCINATE 25 MG TAB.SR.24H PO SCH (11:15)
[2017-01-27] MEDS: LEVOTHYROXINE SODIUM 0.05 MG TABLET PO SCH (11:34)
[2017-01-27] MEDS: LORAZEPAM 1 MG TABLET PO PRN (11:35)
[2017-01-27] MEDS: ASPIRIN 325 MG TABLET, ENT COATED PO SCH (11:35)
[2017-01-27 13:17] VITALS: BP 136/74
[2017-01-27] MEDS ORDERED: REGADENOSON INJ 0.4 MG/5 ML DISP.SYRIN IV ONE (13:21)
--- NOTE | 2017-01-27 15:56 | PDOC DISCHARGE SUMMARY ---
General - Admit/Disc Date/PCP Admission Date/Primary Care Provider: 01/26/17 00:07 NINFA GARCIA MD Discharge Date: 01/27/17 - Discharge Diagnosis (1) Chest pain Is this a current diagnosis for this admission?: Yes Summary: Most likely secondary to anxiety. Patient had a normal stress test today. (2) Hypertension Is this a current diagnosis for this admission?: Yes (3) Hypothyroid Is this a current diagnosis for this admission?: Yes (4) Interstitial cystitis Is this a current diagnosis for this admission?: Yes - Additional Information Resuscitation Status: Full Code Discharge Diet: Cardiac Discharge Activity: Activity As Tolerated Home Medications: Amitriptyline HCl [Elavil 25 mg Tablet] 25 mg PO QHS 01/26/17 Levothyroxine Sodium [Synthroid 0.05 mg Tablet] 50 mcg PO Q6AM 01/26/17 Linaclotide [Linzess 145 Mcg Capsule] 145 mcg PO DAILY 01/26/17 Losartan Potassium [Cozaar 50 mg Tablet] 50 mg PO Q12 01/26/17 Metoprolol Tartrate [Lopressor 100 mg Tablet] 100 mg PO Q12 01/26/17 Zolpidem Tartrate [Ambien 5 mg Tablet] 5 mg PO HSP PRN 01/26/17 Aspirin [Ecotrin 325 mg EC Tablet] 325 mg PO DAILY tabec 01/27/17 Flu Vacc [id number] [id number] Up/Pf [Fluzone Adlt Quad [id number] Vac 0.5 ml Syr] 0.5 ml IM .DISCHARGE PRN disp.syrin 01/27/17 History of Present Illness History of Present Illness: WILMAR GOLDEN is a 61 year old female with anxiety who presented to emergency room with chest pain. Patient reports that she was walking up and down stairs of boxes and she developed some left chest heaviness. She reports that this only lasted for a brief minute or so. The patient came to emergency room. She has had multiple cardiac evaluations. Patient does relate that she has been more anxious recently. The pain was unrelated to exertion. Hospital Course Hospital Course: 61-year-old female with history of anxiety as well as hypertension who presented with some atypical chest pain. The patient was monitored on telemetry and no cardiac arrhythmias. She then underwent a stress test that showed no evidence for reversible ischemia. Is felt that her chest pain most likely was secondary to her underlying anxiety. She is given encouragement and will be discharged home. She will follow-up with her primary care in 2 weeks. Other medical problems were stable during this hospitalization. Physical Exam Vital Signs: Temp Pulse Resp BP Pulse Ox 98.1 F 93 16 136/74 H 100 01/27/17 14:26 01/27/17 14:26 01/27/17 14:26 01/27/17 14:26 01/27/17 14:26 Intake & Output 01/26/17 01/27/17 01/28/17 06:59 06:59 06:59 Intake Total 200 Output Total 600 Balance -400 Weight 53.9 kg General appearance: PRESENT: no acute distress Eye exam: PRESENT: conjunctiva pink. ABSENT: scleral icterus Mouth exam: PRESENT: moist, tongue midline Neck exam: ABSENT: JVD Respiratory exam: PRESENT: clear to auscultation moses. ABSENT: rales, rhonchi, wheezes Cardiovascular exam: PRESENT: RRR. ABSENT: diastolic murmur, rubs, systolic murmur GI/Abdominal exam: PRESENT: normal bowel sounds, soft. ABSENT: distended, guarding, mass, organolmegaly, rebound, tenderness Extremities exam: ABSENT: calf tenderness, clubbing, pedal edema Neurological exam: PRESENT: alert, awake, oriented to person, oriented to place , oriented to time, oriented to situation, CN II-XII grossly intact. ABSENT: motor sensory deficit Psychiatric exam: PRESENT: appropriate affect Skin exam: PRESENT: dry, intact, warm. ABSENT: cyanosis, rash Results Laboratory Results: 01/27/17 04:22 Triglycerides 56 Cholesterol 172.27 LDL Cholesterol Direct 70 VLDL Cholesterol 11.0 HDL Cholesterol 76 01/26/17 01/26/17 01/26/17 00:08 00:08 06:00 Creatine Kinase CK-MB (CK-2) 0.57 0.31 Troponin I Cancelled < 0.012 < 0.012 01/26/17 01/27/17 13:03 04:22 Creatine Kinase 39 CK-MB (CK-2) < 0.22 Troponin I < 0.012 Impressions: Chest X-Ray 01/25/17 20:38 IMPRESSION: NO ACUTE RADIOGRAPHIC FINDING IN THE CHEST. Qualifiers PATEINT BEING DISCHARGED WITH ANY OF THE FOLLOWING DIAGNOSIS?: No Plan Discharge Plan: Patient is discharged to home. Follow-up with primary care in 1-2 weeks. Time Spent: Less than 30 Minutes
--- NOTE | 2017-01-31 15:22 | DRAGON STRESS TEST REPORT ---
Intravenous Lexiscan Cardiolite stress test using single photon emmision computerized tomography. Date of procedure: 01/27/2017. Ordering Provider: Dr. Guzmán. Patient' s status: In Patient Indication: Chest pain. Coronary risk factors: Age, hypertension, and dyslipidemia. Resting EKG: Sinus Rhythm. Low voltage in lead AvL. Stress EKG: No changes of ischemia. The patient does no chest pain or discomfort, and there were no arrhythmias seen. Reason for termination: Protocol. Conclusions: Normal EKG and hemodynamic response to IV Lexiscan. Nuclear data: At rest the patient was given 10.03 millicuries of technetium 99m sestamibi injected intravenously. As per protocol rest non gated SPECT images were obtained. Subsequently the patient was given intravenous Lexiscan at a dose of 0.4 mg in 5 mL intravenously, followed by flush with normal saline. Subsequently the stress dose of 30.3 millicuries of technetium 99m sestamibi was injected intravenously. As per protocol stress gated images were obtained. Nuclear interpretation: Review of images showed that all segments of the myocardium had normal perfusion at rest, and normal perfusion post stress with IV Lexiscan. All segments of the myocardium had normal motion, contraction, and thickening by gated study. T. I D. ratio was normal at 1.11. Computer read rest, and stress left ventricular ejection fraction were 74 %, and 72 %, respectively. Conclusion: 1. There is no scintigraphic evidence of Lexiscan induced myocardial ischemia. 2. There is no scintigraphic evidence of myocardial infarction/scar. Recommendations: Aggressive risk factor modification, and treating the underlying co- morbidities. [facility]
== END 2017-01-27 15:40 | disposition home or self-care (01) ==
LOC: ER 20:01 → EH 01-26 00:07 → 4N 01-26 18:44
PROVIDERS: ADMIT Family Medicine; ATTEND Family Medicine
PROC: 3E0234Z Introduction of Serum, Toxoid and Vaccine into Muscle, Percutaneous Approach (ICD-10-PCS; principal; 2017-01-27)
DX: R07.89 Other chest pain (principal); I10 Essential (primary) hypertension; E03.9 Hypothyroidism, unspecified; N30.10 Interstitial cystitis (chronic) without hematuria; F41.1 Generalized anxiety disorder; K30 Functional dyspepsia; D64.9 Anemia, unspecified; R19.7 Diarrhea, unspecified; R12 Heartburn; R05 Cough; Z79.899 Other long term (current) drug therapy; Z90.49 Acquired absence of other specified parts of digestive tract; Z82.49 Family history of ischemic heart disease and other diseases of the circulatory system; Z23 Encounter for immunization
CPT/HCPCS: 93005; 99285; 96374; 36415 ×2; 82553 ×2; 82550 ×2; 85025; 80053; 84484 ×2; 80061; 93017; 71010; 78452; 90686; 93010; A9500; A9270 ×13; J2785; J3490 ×3; Q9969

== ENCOUNTER 2017-01-31 19:47 | Emergency (ER) | payer MEDICARE, BC ==
[2017-01-31] MEDS ORDERED: ASPIRIN 81 MG TABLET, CHEWABLE PO ONE (19:53)
[2017-01-31 20:17] LABS: ABSOLUTE BASOPHILS # (AUTO) 0.1 10^3/uL (0.0-0.2); ABSOLUTE EOSINOPHILS # (AUTO) 0.2 10^3/uL (0.0-0.6); ABSOLUTE LYMPHOCYTES (AUTO) 1.6 10^3/uL (0.5-4.7); ABSOLUTE MONOCYTES (AUTO) 0.5 10^3/uL (0.1-1.4); ABSOLUTE NEUT (AUTO) 3.6 10^3/uL (1.7-8.2); BASOPHILS % (AUTO) 1.3 % (0-2); EOSINOPHILS % (AUTO) 2.7 % (0-6); HEMATOCRIT 29.8 % (36.0-47.0); HEMOGLOBIN 10.3 g/dL (12.0-15.5); HGB HCT DIFFERENCE 1.1; LYMPHOCYTES % (AUTO) 27.5 % (13-45); MEAN CORPUSCULAR HGB CONC 34.6 g/dL (32.0-36.0); MEAN CORPUSCULAR VOLUME 84 fl (80-97); RED BLOOD COUNT 3.56 10^6/uL (3.72-5.28); RED CELL DISTRIBUTION WIDTH 14.6 % (11.5-14.0); SEGMENTED NEUTROPHILS % (AUTO) 60.5 % (42-78); WHITE BLOOD COUNT 5.9 10^3/uL (4.0-10.5)
[2017-01-31 20:34] LABS: ALANINE AMINOTRANSFERASE 31 U/L (9-52); ALKALINE PHOSPHATASE 124 U/L (38-126); ANION GAP 12 (5-19); ASPARTATE AMINO TRANSFERASE 16 U/L (14-36); BILIRUBIN,DIRECT 0.3 mg/dL (0.0-0.4); BILIRUBIN,TOTAL 0.4 mg/dL (0.2-1.3); BLOOD UREA NITROGEN 6 mg/dL (7-20); CALCIUM 8.9 mg/dL (8.4-10.2); CARBON DIOXIDE 21 mmol/L (22-30); CHLORIDE 100 mmol/L (98-107); CREATINE KINASE 43 U/L (30-135); CREATININE RESULT 0.69 mg/dL (0.52-1.25); GLUCOSE 100 mg/dL (75-110); POTASSIUM 3.9 mmol/L (3.6-5.0); SODIUM 132.7 mmol/L (137-145); TOTAL PROTEIN 6.7 g/dL (6.3-8.2)
[2017-01-31 20:46] LABS: CREATINE KINASE MB 0.25 ng/mL (<4.55)
[2017-01-31 20:47] LABS: TROPONIN I < 0.012 ng/mL
[2017-01-31 21:09] LABS: APPEARANCE,URINE CLEAR; BILIRUBIN,URINE NEGATIVE (NEGATIVE); CALCIUM OXALATE CRYSTALS,URINE RARE /HPF; GLUCOSE, URINE NEGATIVE (NEGATIVE); KETONES,URINE NEGATIVE (NEGATIVE); LEUKOCYTE ESTERASE,URINE TRACE (NEGATIVE); NITRITE,URINE NEGATIVE (NEGATIVE); PROTEIN,URINE NEGATIVE (NEGATIVE); URINE SPECIFIC GRAVITY 1.001; UROBILINOGEN,URINE NEGATIVE mg/dL (<2.0)
--- NOTE | 2017-01-31 21:21 | RADIOLOGY REPORT (SQ) ---
EXAM DESCRIPTION: CHEST SINGLE VIEW COMPLETED DATE/TIME: 01/31/2017 9:13 pm REASON FOR STUDY: cp COMPARISON: 01/25/2017 NUMBER OF VIEWS: One view. TECHNIQUE: Single frontal radiographic view of the chest acquired. LIMITATIONS: None. FINDINGS: LUNGS AND PLEURA: No opacities, masses or pneumothorax. No pleural effusion. Attenuated bl ood vessels and flattened kyara-diaphragms. MEDIASTINUM AND HILAR STRUCTURES: No masses. Contour normal. HEART AND VASCULAR STRUCTURES: Heart normal in size. Normal vasculature. BONES: No acute findings. HARDWARE: None in the chest. OTHER: No other significant finding. IMPRESSION: COPD. NO ACUTE RADIOGRAPHIC FINDING IN THE CHEST. TECHNICAL DOCUMENTATION: JOB ID: [id number] Room 77- All Rights Reserved
[2017-01-31] MEDS ORDERED: MAG HYDROX/AL HYDROX/SIMETH SUSP 30 ML UDCUP PO ONE (21:37)
[2017-01-31] MEDS ORDERED: FAMOTIDINE 20 MG TABLET PO ONE (21:37)
[2017-01-31] MEDS ORDERED: LIDOCAINE 2% VISCOUS SOLN 20 ML UDCUP PO ONE (21:38)
[2017-01-31] MEDS ORDERED: METOCLOPRAMIDE HCL ORAL SOLN 10 MG/10 ML UDCUP PO ONE (21:38)
[2017-01-31] MEDS ORDERED: ONDANSETRON HCL INJ/PF 4 MG/2 ML SDV IV ONE (21:39)
--- NOTE | 2017-01-31 21:41 | ER Document Report ---
ED General - General Chief Complaint: Chest Pain Stated Complaint: CHEST PAIN Time Seen by Provider: 01/31/17 21:13 Information source: Patient TRAVEL OUTSIDE OF THE [place] IN LAST 30 DAYS: No - HPI Notes: Patient is a 61-year-old white female history of hypertension hypothyroidism anxiety and recurrent multiple visits for chest pain presents with report of another episode of chest pain that came on at rest at 1800 this evening associated with nausea. She denies any vomiting cough congestion constipation diarrhea or dysuria. She reports no belching. She denies any exertional component. The patient reports she was entertaining her 15 grandchildren shortly before the discomfort came on. The patient denies any significant back pain. When asked about her recent visit to the hospital, the patient was somewhat nebulous. When I asked the patient when her last cardiac stress test was she states was back in October, although I see that she previously had a cardiac stress test on 01/27/17 which was completely negative. I also see in the record that the patient's reports that EMS previously stated that she could be arrested for calling recurrently for frivolous reasons. According to the record , the stated that 3 weeks ago she had a negative cardiac stress test in [facility]. The patient on questioning however denies any significant anxiety. - Related Data Allergies/Adverse Reactions: Sulfa (Sulfonamide Antibiotics) Allergy (Severe, Verified 12/04/16 16:45) rash morphine [Morphine] Allergy (Intermediate, Verified 12/04/16 16:45) Hives Past Medical History - General Information source: Patient - Social History Smoking Status: Never Smoker Frequency of alcohol use: None Drug Abuse: None Lives with: Family Family History: CVA, Hyperlipidemia, Hypertension, Malignancy, Thyroid Disfunction Patient has suicidal ideation: No Patient has homicidal ideation: No - Past Medical History Cardiac Medical History: Reports: Hx Hypercholesterolemia, Hx Hypertension Pulmonary Medical History: Reports: Hx Asthma Neurological Medical History: Reports: Hx Migraine Endocrine Medical History: Reports: Hx Hypothyroidism Renal/ Medical History: Reports: Hx Kidney Stones. 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 Denies recent illness. EENT: Denies eye, ear, throat, or mouth pain or symptoms. Denies nasal or sinus congestion or discharge. Denies throat, tongue, or mouth swelling or difficulty swallowing. CARDIOVASCULAR: Denies palpitations or racing or irregular heart beat. Denies ankle edema. RESPIRATORY: Denies cough, cold, or chest congestion. Denies shortness of breath, difficulty breathing, or wheezing. GASTROINTESTINAL: Denies abdominal pain or distention. Denies vomiting, or diarrhea. Denies blood in vomitus, stools, or per rectum. Denies black, tarry stools. Denies constipation. GENITOURINARY: Denies difficulty urinating, painful urination, burning, frequency, blood in urine, or discharge. FEMALE GENITOURINARY: Denies vaginal bleeding, heavy or abnormal periods, irregular periods. Denies vaginal discharge or odor. MUSCULOSKELETAL: Denies back or neck pain or stiffness. Denies joint pain or swelling. SKIN: Denies rash, lesions or sores. HEMATOLOGIC : Denies easy bruising or bleeding. LYMPHATIC: Denies swollen, enlarged glands. NEUROLOGICAL: Denies confusion or altered mental status. Denies passing out or loss of consciousness. Denies dizziness or lightheadedness. Denies headache. Denies weakness or paralysis or loss of use of either side. Denies problems with gait or speech. Denies sensory loss, numbness, or tingling. Denies seizures. PSYCHIATRIC: Denies depression, suicidal ideation, or homicidal ideation. ALL OTHER SYSTEMS REVIEWED AND NEGATIVE. Dictation was performed using [employer] voice recognition software Physical Exam - Vital signs Vitals: Resp 14 01/31/17 20:00 - Notes Notes: PHYSICAL EXAMINATION: GENERAL: Well-appearing, well-nourished, anxious and poor eye contact. HEAD: Atraumatic, normocephalic. EYES: Pupils equal round and reactive to light, extraocular movements intact, conjunctiva are normal. ENT: Nares patent, oropharynx clear without exudates. Moist mucous membranes. NECK: Normal range of motion, supple without lymphadenopathy LUNGS: Breath sounds clear to auscultation bilaterally and equal. No wheezes rales or rhonchi. HEART: Regular rate and rhythm without murmurs. Reproducible anterior chest wall pain on exam. No crepitance or bony deformity. ABDOMEN: Soft, nontender, nondistended abdomen. No guarding, no rebound. No masses appreciated. Female : deferred Musculoskeletal: Normal range of motion, no pitting or edema. No cyanosis. NEUROLOGICAL: Cranial nerves grossly intact. Normal speech, normal gait. Normal sensory, motor exams PSYCH: Poor eye contact, anxious. SKIN: Warm, Dry, normal turgor, no rashes or lesions noted. Course - Re-evaluation Re-evalutation: 01/31/17 21:51 Patient initially was given a GI cocktail and Pepcid by mouth. 01/31/17 23:30 Patient reports improvement after the GI cocktail and Pepcid, although she still reported some mild chest tightness. Patient was given Ativan 1 mg IV in the discomfort completely resolved. Vital signs are stable. Troponin negative. Patient has had previous recent workups and negative stress test. Question anxiety Component versus reflux versus combination of the 2. No evidence for acute WI or ischemia or pneumonia or pulmonary embolus or CHF or cardiomyopathy. Question of patient would benefit from a long-acting medication such as Zoloft or Paxil or lexapro. - Vital Signs Vital signs: Temp Pulse Resp BP Pulse Ox 97.9 F 8 L 159/86 H 99 01/31/17 20:44 01/31/17 22:01 01/31/17 22:01 01/31/17 22:01 - Laboratory Result Diagrams: 01/31/17 20:05 01/31/17 20:05 Laboratory results interpreted by me: 01/31/17 01/31/17 01/31/17 20:05 20:05 20:52 RBC 3.56 L Hgb 10.3 L Hct 29.8 L RDW 14.6 H Sodium 132.7 L Carbon Dioxide 21 L BUN 6 L Urine Blood MODERATE H Ur Leukocyte Esterase TRACE H - EKG Interpretation by Me EKG shows normal: Sinus rhythm Additional EKG results interpreted by me: 01/31/17 21:50 EKG as interpreted by me showed normal sinus rhythm heart rate of 67. There was no gross evidence for acute WI or ischemia identified. There was no significant change from previous EKG reviewed from 01/25/17. Discharge - Discharge Clinical Impression: Anxiety Chest pain Qualifiers: Chest pain type: unspecified Qualified Code(s): R07.9 - Chest pain, unspecified GERD (gastroesophageal reflux disease) Qualifiers: Esophagitis presence: with esophagitis Qualified Code(s): K21.0 - Gastro- esophageal reflux disease with esophagitis Condition: Stable Disposition: HOME, SELF-CARE Instructions: Chest Pain of Unclear Cause ([facility]), Reflux Disease (GERD) ([facility]), Anxiety ([facility]) Additional Instructions: Talk with your regular practitioner about being started on a medication such as Paxil, Lexapro, or Zoloft to try to help your chronic anxiety. Start taking Prilosec daily for reflux. Do not take Xanax and drive or operate heavy machinery. Prescriptions: Alprazolam [Xanax 0.5 mg Tablet] 0.5 mg PO BIDP PRN #20 tablet PRN Reason: Omeprazole 20 mg PO DAILY #30 tablet. Referrals: NINFA GARCIA MD [Primary Care Provider] - Follow up as needed
[2017-01-31] MEDS ORDERED: LORAZEPAM INJ 2 MG/1 ML VIAL IV ONE (23:00)
--- NOTE | 2017-01-31 23:10 | EKG REPORT ---
SEVERITY:- ABNORMAL ECG - SINUS RHYTHM : Confirmed by: Yolanda Greenfield 31-Jan-2017 23:10:04
[2017-01-31 23:45] VITALS: BP 137/75
== END 2017-01-31 23:42 | disposition home or self-care (01) ==
LOC: ER 19:47
DX: F41.9 Anxiety disorder, unspecified (principal); K21.0 Gastro-esophageal reflux disease with esophagitis; R07.89 Other chest pain; I10 Essential (primary) hypertension; R11.0 Nausea; J45.909 Unspecified asthma, uncomplicated; Z88.2 Allergy status to sulfonamides; Z88.5 Allergy status to narcotic agent
CPT/HCPCS: 93005; 99285; 96374; 96375; 36415; 82553; 82550; 85025; 80053; 81001; 84484; 71010; 93010; A9270 ×2; J3490; J2060; J2405

== ENCOUNTER → 2019-08-08 | Outpatient (CLI) | payer MEDICARE, BC ==
--- NOTE | 2019-08-08 08:17 | RADIOLOGY REPORT (SQ) ---
EXAM DESCRIPTION: U/S ABDOMEN LIMITED W/O DOP IMAGES COMPLETED DATE/TIME: 08/08/2019 7:44 am REASON FOR STUDY: ABNORMAL RESULTS OF LIVER FUNCTION STUDIES R94.5 ABNORMAL RESULTS OF LIVER FUNCTI ON STUDIES COMPARISON: Renal ultrasound 11/12/2016, 09/30/2011, 01/14/2011 CT abdomen pelvis 09/27/2015 TECHNIQUE: Dynamic and static grayscale images acquired of the abdomen and recorded on PACS. Additio nal selected color Doppler and spectral images recorded. LIMITATIONS: Midline bowel gas FINDINGS: PANCREAS: Midline pancreas unremarkable LIVER: Normal size, diffuse increased echogenicity from fatty infiltration or diffuse hepatocellular. No masses. LIVER VASCULATURE: Normal directional flow of the main portal vein and hepatic veins. GALLBLADDER: Surgically absent ULTRASOUND-DETECTED KNOX'S SIGN: Not applicable INTRAHEPATIC DUCTS AND COMMON DUCT: CBD and intrahepatic ducts normal caliber. No filling defects. C ommon duct at the lucy hepatis 7 mm. Distal most common duct not well seen due to duodenum gas INFERIOR VENA CAVA: Normal flow. AORTA: No aneurysm. RIGHT KIDNEY: 10.6 cm in length with diffuse cortical thinning from medical renal disease. No cysts , stones, or masses PERITONEAL AND RIGHT PLEURAL SPACE: No ascites or effusions. OTHER: No other significant findings. IMPRESSION: Echogenic liver from fatty infiltration or diffuse hepatocellular disease Post cholecystectomy TECHNICAL DOCUMENTATION: JOB ID: [id number] 2010 [employer]- All Rights Reserved Reading location - IP/workstation name: [email or web address]
== END ==
LOC: RAD 07:18
PROVIDERS: ATTEND Internal Medicine Gastroenterology
DX: R94.5 Abnormal results of liver function studies (principal)
CPT/HCPCS: 76705

== ENCOUNTER 2019-11-28 08:48 | Day surgery (SDC) | payer MEDICARE, BC ==
[2019-11-28 10:02] LABS: INTERNATIONAL RATION (INR) 0.96
[2019-11-28 10:03] LABS: PARTIAL THROMBOPLASTIN TIME 26.8 SEC (23.5-35.8)
[2019-11-28 10:11] LABS: HEMOGLOBIN 13.4 g/dL (12.0-15.5); MEAN CORPUSCULAR HEMOGLOBIN 31.7 pg (27.0-33.4); MEAN CORPUSCULAR HGB CONC 35.2 g/dL (32.0-36.0); MEAN CORPUSCULAR VOLUME 90 fl (80-97); PLATELET COUNT 219 10^3/uL (150-450); RED BLOOD COUNT 4.21 10^6/uL (3.72-5.28); RED CELL DISTRIBUTION WIDTH 13.5 % (11.5-14.0); WHITE BLOOD COUNT 6.3 10^3/uL (4.0-10.5)
[2019-11-28 10:17] LABS: BLOOD UREA NITROGEN 16 mg/dL (7-20)
[2019-11-28] MEDS ORDERED: MIDAZOLAM 2 MG/2 ML INJ ONE (11:05)
[2019-11-28] MEDS ORDERED: FENTANYL CITRATE INJ/PF 100 MCG/2 ML AMPUL ONE (11:06)
--- NOTE | 2019-11-28 12:16 | RADIOLOGY REPORT (SQ) ---
EXAM DESCRIPTION: CT BIOPSY LIVER IMAGES COMPLETED DATE/TIME: 11/28/2019 11:41 am REASON FOR STUDY: ABNORMAL RESULTS OF LIVER FUNTION STUDIES R94.5 ABNORMAL RESULTS OF LIVER FUNCTIO N STUDIES Z79.01 [facility] (CURRENT) USE OF ANTICOAGULANTS COMPARISON: None. TECHNIQUE: After obtaining informed consent and explaining the risks and benefits of conscious sedat ion,the patient agreed to the procedure. The patient was brought to the CT suite and was placed supin e on the CT gurney. The patient was prepped and draped in the usual sterile fashion. Axial images we re obtained for targeting of theinferior right hepatic lobe. An appropriate access site was selected. IV conscious sedation was administered and physician direction by the registered nurse using 1 karen grams of Versed and 50 micrograms of fentanyl. Physiologic monitoring was provided before, during, an d after sedation. The total sedation time was 30 minutes. Documentation face to face time, the performing proceduralist, spent monitoring the patient: [address] of the liver was performed to localize an approach for the inferior right hepatic l iver biopsy. A percutaneous site was marked. Time out was performed. After skin prep and local lidocaine for skin and deep tissue anesthesia, a coaxial biopsy needle sys tem was used to obtain several cores of tissue from the inferior right hepatic lobe. These were subm itted to the lab in formalin. No immediate postprocedure complications. Total of 2.[address] fluoro was used. 4 CT Fluoroscopic images were obtained and saved to PACS. All CT scanners at this facility use dose modulation, iterative reconstruction, and/or weight based d osing when appropriate to reduce radiation dose to as low as reasonably achievable (ALARA). [facility]: Dose Right [facility]: CareDose [facility]: Dose Right [facility]: Teradose 4D [facility]: [employer] RADIATION DOSE: CT Rad equipment meets quality standard of care and radiation dose reduction techniq ues were employed. CTDIvol: 4.0 - 9.0 mGy. DLP: 225 mGy-cm. mGy. LIMITATIONS: None. FINDINGS: CT guided liver biopsy as detailed above. IMPRESSION: CT GUIDED NON TARGET INFERIOR RIGHT HEPATIC LOBE LIVER BIOPSY PERFORMED ABOVE. PATH OLOGY PENDING. NO IMMEDIATE COMPLICATIONS. COMMENT: Patient medication list reviewed:Yes- Quality ID# [id number]:Eligible professional attests to docu menting in the medical record they obtained, updated, or reviewed the patient's current medications.. Quality ID [id number]: Final reports for procedures using fluoroscopy that document radiation exposure kishan jac, or exposure time and number of fluorographic images (if radiation exposure indices are not avail able) TECHNICAL DOCUMENTATION: JOB ID: [id number] Quality ID # [id number]: Final reports with documentation of one or more dose reduction techniques (e.g., A utomated exposure control, adjustment of the mA and/or kV according to patient size, use of iterative reconstruction technique) 2010 [employer]- All Rights Reserved Reading location - IP/workstation name: [email or web address]
[2019-11-28 13:40] VITALS: BP 112/66
== END 2019-11-28 13:45 | disposition home or self-care (01) ==
LOC: RAD 08:48
PROVIDERS: ATTEND Internal Medicine Gastroenterology
DX: K76.0 Fatty (change of) liver, not elsewhere classified (principal); K76.89 Other specified diseases of liver; R94.5 Abnormal results of liver function studies; Z79.01 Long term (current) use of anticoagulants; Z79.899 Other long term (current) drug therapy
CPT/HCPCS: 36415; 84520; 82565; 85027; 85610; 85730; 88305 ×2; 88313 ×2; 47000; J2250; J3010; 88342